=== PATIENT | female | born 1965 | race African-American/Black ===

== ENCOUNTER 2017-03-02 12:57 | Emergency (ER) | payer MEDICARE, MEDICAID ==
[~2017-03-02] VITALS: Ht 160 cm; Wt 69.0 kg
[~2017-03-02 12:57] MED LIST: ASPI-1159 PO; CALC667C4 PO; DOCU-150 PO; HYDR25TA PO; INSLAN SQ; LISI-653 PO; PRAV40TA58 PO; SITA100T11 PO
[2017-03-02] MEDS ORDERED: IBUPROFEN 600MG TABLET PO ONE (16:00)
[2017-03-02 16:09] VITALS: BP 175/92
== END 2017-03-02 17:55 | disposition home or self-care (01) ==
LOC: ER 12:57
DX: S40.012A Contusion of left shoulder, initial encounter (principal); S10.93XA Contusion of unspecified part of neck, initial encounter; I10 Essential (primary) hypertension; E11.9 Type 2 diabetes mellitus without complications; Z88.0 Allergy status to penicillin; Z79.4 Long term (current) use of insulin; Z79.82 Long term (current) use of aspirin; V89.2XXA Person injured in unspecified motor-vehicle accident, traffic, initial encounter; Y93.89 Activity, other specified; Y92.89 Other specified places as the place of occurrence of the external cause; Y99.8 Other external cause status
CPT/HCPCS: 72125; 73030; 99284

== ENCOUNTER 2017-05-05 21:20 | Inpatient (IN) | payer MEDICARE, MEDICAID ==
[~2017-05-05] VITALS: Ht 160 cm; Wt 72.6 kg
[2017-05-05 20:00] VITALS: BP 163/84
[2017-05-05 21:20] VITALS: BP 163/84
[2017-05-05 22:45] VITALS: BP 163/84
[2017-05-05] MEDS ORDERED: DEXTROSE 50% WATER 50ML SYRINGE IV PRN (22:45)
[2017-05-05] MEDS ORDERED: MORPHINE SULFATE 2 MG/ML CPJ (NOT FOR IM USE) IV PRN (22:45)
[2017-05-05] MEDS ORDERED: MAGNESIUM HYDROXIDE 400MG/5ML 30ML UDC PO PRN (23:00)
[2017-05-05] MEDS ORDERED: ACETAMINOPHEN 325MG TABLET PO PRN (23:00)
[2017-05-05] MEDS ORDERED: ACETAMINOPHEN 650MG SUPP PR PRN (23:00)
[2017-05-05] MEDS: ATORVASTATIN CALCIUM 10MG TABLET PO SCH (23:51)
[2017-05-05] MEDS: INSULIN DETEMIR UD 100 UNITS/ML SYR SUBCUT SCH (23:53)
[2017-05-06] MEDS ORDERED: FUROSEMIDE 40MG/4ML VIAL IVP SCH
[2017-05-06] MEDS ORDERED: FUROSEMIDE 40MG/4ML VIAL IVP PRN
[2017-05-06] MEDS: BLOOD SUGAR DIAGNOSTIC STRIP TEST SCH ×4 (06:30→21:00)
[2017-05-06] MEDS: INSULIN LISPRO 100 UNITS/ML SUBCUT SCH ×7 (07:01→22:46)
[2017-05-06 08:00] VITALS: BP 154/73
[2017-05-06] MEDS: VANCOMYCIN 1 G PREMIX 200 ML IV SCH (08:13)
[2017-05-06] MEDS: ZINC SULFATE 220 MG ( 50 ) CAPSULE PO SCH (08:14)
[2017-05-06] MEDS: ASCORBIC ACID 250 MG TABLET PO SCH ×2 (08:14→16:45)
[2017-05-06] MEDS: LISINOPRIL 40MG TABLET PO SCH (08:14)
[2017-05-06] MEDS: FOLIC ACID/VITAMIN B COMP W-C TABLET PO SCH (08:14)
[2017-05-06] MEDS: CALCIUM ACETATE 667MG CAPSULE PO SCH (08:14)
[2017-05-06] MEDS: DOCUSATE SODIUM 100MG CAPSULE PO SCH (08:14)
[2017-05-06] MEDS ORDERED: ASCORBIC ACID 500MG/5ML 120ML PO SCH (09:00)
[2017-05-06] MEDS ORDERED: ALBUMIN HUMAN 12.5GM/50ML (25%) IV SCH (09:00)
[2017-05-06] MEDS ORDERED: DEXT 5%/0.9% NACL 1,000 ML IV SCH (10:00)
[2017-05-06 20:00] VITALS: BP 146/70
[2017-05-06] MEDS: ATORVASTATIN CALCIUM 10MG TABLET PO SCH (22:24)
[2017-05-06] MEDS: INSULIN DETEMIR UD 100 UNITS/ML SYR SUBCUT SCH (22:47)
[2017-05-07] MEDS: BLOOD SUGAR DIAGNOSTIC STRIP TEST SCH ×4 (06:03→21:32)
[2017-05-07] MEDS: INSULIN LISPRO 100 UNITS/ML SUBCUT SCH ×8 (06:03→21:00)
[2017-05-07 08:00] VITALS: BP 177/84
[2017-05-07] MEDS: VANCOMYCIN 1 G PREMIX 200 ML IV SCH (08:25)
[2017-05-07] MEDS: ZINC SULFATE 220 MG ( 50 ) CAPSULE PO SCH (08:26)
[2017-05-07] MEDS: LISINOPRIL 40MG TABLET PO SCH (08:26)
[2017-05-07] MEDS: ASCORBIC ACID 250 MG TABLET PO SCH ×2 (08:26→16:35)
[2017-05-07] MEDS: CALCIUM ACETATE 667MG CAPSULE PO SCH (08:26)
[2017-05-07] MEDS: DOCUSATE SODIUM 100MG CAPSULE PO SCH (08:26)
[2017-05-07] MEDS: FOLIC ACID/VITAMIN B COMP W-C TABLET PO SCH (08:26)
[2017-05-07 20:00] VITALS: BP 157/78
[2017-05-07] MEDS: ATORVASTATIN CALCIUM 10MG TABLET PO SCH (21:32)
[2017-05-07] MEDS: INSULIN DETEMIR UD 100 UNITS/ML SYR SUBCUT SCH (21:32)
[2017-05-08] MEDS: BLOOD SUGAR DIAGNOSTIC STRIP TEST SCH ×4 (05:51→20:55)
[2017-05-08] MEDS: INSULIN LISPRO 100 UNITS/ML SUBCUT SCH ×7 (06:50→20:57)
[2017-05-08 07:34] LABS: BASOPHILS % 0.5 % (0.0-2.0); EOSINOPHILS % 1.2 % (0.0-5.0); HEMATOCRIT. 25.5 % (36.0-48.0); HEMOGLOBIN. 8.5 g/dL (12.0-16.0); LYMPHOCYTES % 22.2 % (20.0-50.0); MEAN CORPUSCULAR HEMOGLOBIN 29.1 pg (28.0-32.0); MEAN CORPUSCULAR VOLUME 87.5 fL (81.0-99.0); MEAN PLATELET VOLUME 7.4 fl (7.4-10.4); MONOCYTES % 9.7 % (2.0-8.0); NEUTROPHILS % 66.4 % (40.0-76.0); PLATELET 217 x1000/uL (130-400); RED BLOOD CELL COUNT 2.91 mill/uL (4.2-5.4); RED CELL DISTRIBUTION WIDTH 15.3 % (11.6-14.6)
[2017-05-08 07:40] LABS: CARBON DIOXIDE 28 mEq/L (21-32); CHLORIDE 106 mEq/L (98-107)
[2017-05-08 08:00] VITALS: BP 126/51
[2017-05-08] MEDS: DOCUSATE SODIUM 100MG CAPSULE PO SCH (08:41)
[2017-05-08] MEDS: FOLIC ACID/VITAMIN B COMP W-C TABLET PO SCH (08:41)
[2017-05-08] MEDS: CALCIUM ACETATE 667MG CAPSULE PO SCH (08:41)
[2017-05-08] MEDS: ASCORBIC ACID 250 MG TABLET PO SCH ×2 (08:41→16:31)
[2017-05-08] MEDS: ZINC SULFATE 220 MG ( 50 ) CAPSULE PO SCH (08:41)
[2017-05-08] MEDS: VANCOMYCIN 1 G PREMIX 200 ML IV SCH (08:45)
[2017-05-08] MEDS: LISINOPRIL 40MG TABLET PO SCH (08:46)
[2017-05-08 20:00] VITALS: BP 143/69
[2017-05-08] MEDS: ATORVASTATIN CALCIUM 10MG TABLET PO SCH (20:55)
[2017-05-08] MEDS: INSULIN DETEMIR UD 100 UNITS/ML SYR SUBCUT SCH (20:57)
[2017-05-09] MEDS: INSULIN LISPRO 100 UNITS/ML SUBCUT SCH ×7 (06:36→22:27)
[2017-05-09] MEDS: BLOOD SUGAR DIAGNOSTIC STRIP TEST SCH ×4 (06:36→21:00)
[2017-05-09 08:00] VITALS: BP 131/64
[2017-05-09] MEDS: FOLIC ACID/VITAMIN B COMP W-C TABLET PO SCH (09:01)
[2017-05-09] MEDS: LISINOPRIL 40MG TABLET PO SCH (09:01)
[2017-05-09] MEDS: DOCUSATE SODIUM 100MG CAPSULE PO SCH (09:01)
[2017-05-09] MEDS: ZINC SULFATE 220 MG ( 50 ) CAPSULE PO SCH (09:01)
[2017-05-09] MEDS: CALCIUM ACETATE 667MG CAPSULE PO SCH (09:01)
[2017-05-09] MEDS: ASCORBIC ACID 250 MG TABLET PO SCH ×2 (09:02→17:25)
[2017-05-09] MEDS: VANCOMYCIN 1 G PREMIX 200 ML IV SCH (09:21)
[2017-05-09 20:00] VITALS: BP 126/51
[2017-05-09] MEDS: ATORVASTATIN CALCIUM 10MG TABLET PO SCH (22:24)
[2017-05-09] MEDS: INSULIN DETEMIR UD 100 UNITS/ML SYR SUBCUT SCH (23:44)
[2017-05-10] MEDS: BLOOD SUGAR DIAGNOSTIC STRIP TEST SCH ×4 (06:07→20:40)
[2017-05-10] MEDS: VANCOMYCIN 1 G PREMIX 200 ML IV SCH (06:07)
[2017-05-10] MEDS: INSULIN LISPRO 100 UNITS/ML SUBCUT SCH ×8 (06:22→20:39)
[2017-05-10 08:00] VITALS: BP 141/67
[2017-05-10] MEDS: CALCIUM ACETATE 667MG CAPSULE PO SCH (09:38)
[2017-05-10] MEDS: DOCUSATE SODIUM 100MG CAPSULE PO SCH (09:39)
[2017-05-10] MEDS: ZINC SULFATE 220 MG ( 50 ) CAPSULE PO SCH (09:39)
[2017-05-10] MEDS: FOLIC ACID/VITAMIN B COMP W-C TABLET PO SCH (09:39)
[2017-05-10] MEDS: LISINOPRIL 40MG TABLET PO SCH (09:39)
[2017-05-10] MEDS: ASCORBIC ACID 250 MG TABLET PO SCH ×2 (09:39→17:56)
[2017-05-10 20:00] VITALS: BP 170/83
[2017-05-10] MEDS: ATORVASTATIN CALCIUM 10MG TABLET PO SCH (20:39)
[2017-05-10] MEDS: INSULIN DETEMIR UD 100 UNITS/ML SYR SUBCUT SCH (22:00)
[2017-05-11] VITALS: BP 115/49
[2017-05-11 06:36] LABS: BASOPHILS % 0.6 % (0.0-2.0); HEMATOCRIT. 24.7 % (36.0-48.0); HEMOGLOBIN. 8.3 g/dL (12.0-16.0); LYMPHOCYTES % 27.3 % (20.0-50.0); MEAN CORPUSCULAR HEMOGLOBIN 29.5 pg (28.0-32.0); MEAN CORPUSCULAR VOLUME 88.3 fL (81.0-99.0); MEAN PLATELET VOLUME 7.5 fl (7.4-10.4); MONOCYTES % 8.8 % (2.0-8.0); NEUTROPHILS % 61.3 % (40.0-76.0); PLATELET 191 x1000/uL (130-400); RED CELL DISTRIBUTION WIDTH 15.1 % (11.6-14.6)
[2017-05-11] MEDS: VANCOMYCIN 1 G PREMIX 200 ML IV SCH (06:58)
[2017-05-11] MEDS: BLOOD SUGAR DIAGNOSTIC STRIP TEST SCH ×4 (07:00→21:54)
[2017-05-11] MEDS: INSULIN LISPRO 100 UNITS/ML SUBCUT SCH ×7 (07:12→22:06)
[2017-05-11 08:00] VITALS: BP 134/60
[2017-05-11] MEDS: FOLIC ACID/VITAMIN B COMP W-C TABLET PO SCH (08:36)
[2017-05-11] MEDS: DOCUSATE SODIUM 100MG CAPSULE PO SCH (08:36)
[2017-05-11] MEDS: CALCIUM ACETATE 667MG CAPSULE PO SCH (08:36)
[2017-05-11] MEDS: ZINC SULFATE 220 MG ( 50 ) CAPSULE PO SCH (08:36)
[2017-05-11] MEDS: LISINOPRIL 40MG TABLET PO SCH (08:36)
[2017-05-11] MEDS: ASCORBIC ACID 250 MG TABLET PO SCH ×2 (08:36→16:44)
[2017-05-11 20:00] VITALS: BP 160/84
[2017-05-11] MEDS: ATORVASTATIN CALCIUM 10MG TABLET PO SCH (21:54)
[2017-05-11] MEDS: INSULIN DETEMIR UD 100 UNITS/ML SYR SUBCUT SCH (22:05)
[2017-05-12] MEDS: INSULIN LISPRO 100 UNITS/ML SUBCUT SCH ×7 (06:30→21:00)
[2017-05-12] MEDS: BLOOD SUGAR DIAGNOSTIC STRIP TEST SCH ×4 (06:30→21:09)
[2017-05-12] MEDS: VANCOMYCIN 1 G PREMIX 200 ML IV SCH (06:46)
[2017-05-12 08:00] VITALS: BP 165/71
[2017-05-12] MEDS: ASCORBIC ACID 250 MG TABLET PO SCH ×2 (08:39→16:48)
[2017-05-12] MEDS: ZINC SULFATE 220 MG ( 50 ) CAPSULE PO SCH (08:39)
[2017-05-12] MEDS: DOCUSATE SODIUM 100MG CAPSULE PO SCH (08:39)
[2017-05-12] MEDS: LISINOPRIL 40MG TABLET PO SCH (08:39)
[2017-05-12] MEDS: FOLIC ACID/VITAMIN B COMP W-C TABLET PO SCH (08:39)
[2017-05-12] MEDS: CALCIUM ACETATE 667MG CAPSULE PO SCH (08:39)
[2017-05-12 20:00] VITALS: BP 146/70
[2017-05-12] MEDS: ATORVASTATIN CALCIUM 10MG TABLET PO SCH (21:09)
[2017-05-12] MEDS: INSULIN DETEMIR UD 100 UNITS/ML SYR SUBCUT SCH (21:23)
[2017-05-13] MEDS: BLOOD SUGAR DIAGNOSTIC STRIP TEST SCH ×4 (06:20→20:48)
[2017-05-13] MEDS: INSULIN LISPRO 100 UNITS/ML SUBCUT SCH ×7 (06:58→21:04)
[2017-05-13 08:00] VITALS: BP 128/77
[2017-05-13] MEDS: DOCUSATE SODIUM 100MG CAPSULE PO SCH (08:53)
[2017-05-13] MEDS: CALCIUM ACETATE 667MG CAPSULE PO SCH (08:53)
[2017-05-13] MEDS: ASCORBIC ACID 250 MG TABLET PO SCH ×2 (08:54→16:19)
[2017-05-13] MEDS: ZINC SULFATE 220 MG ( 50 ) CAPSULE PO SCH (08:54)
[2017-05-13] MEDS: LISINOPRIL 40MG TABLET PO SCH (08:54)
[2017-05-13] MEDS: FOLIC ACID/VITAMIN B COMP W-C TABLET PO SCH (08:54)
[2017-05-13 20:00] VITALS: BP 174/87
[2017-05-13] MEDS: ATORVASTATIN CALCIUM 10MG TABLET PO SCH (20:48)
[2017-05-13] MEDS: INSULIN DETEMIR UD 100 UNITS/ML SYR SUBCUT SCH (21:04)
[2017-05-14 05:00] VITALS: BP 132/61
[2017-05-14] MEDS: BLOOD SUGAR DIAGNOSTIC STRIP TEST SCH ×4 (06:02→21:30)
[2017-05-14] MEDS: INSULIN LISPRO 100 UNITS/ML SUBCUT SCH ×7 (07:15→21:42)
[2017-05-14 08:08] VITALS: BP 130/70
[2017-05-14] MEDS: FOLIC ACID/VITAMIN B COMP W-C TABLET PO SCH (08:27)
[2017-05-14] MEDS: CALCIUM ACETATE 667MG CAPSULE PO SCH (08:27)
[2017-05-14] MEDS: ASCORBIC ACID 250 MG TABLET PO SCH ×2 (08:27→16:45)
[2017-05-14] MEDS: LISINOPRIL 40MG TABLET PO SCH (08:27)
[2017-05-14] MEDS: ZINC SULFATE 220 MG ( 50 ) CAPSULE PO SCH (08:27)
[2017-05-14] MEDS: DOCUSATE SODIUM 100MG CAPSULE PO SCH (08:27)
[2017-05-14 20:00] VITALS: BP 146/74
[2017-05-14] MEDS: ATORVASTATIN CALCIUM 10MG TABLET PO SCH (21:38)
[2017-05-14] MEDS: INSULIN DETEMIR UD 100 UNITS/ML SYR SUBCUT SCH (21:41)
[2017-05-15] MEDS: BLOOD SUGAR DIAGNOSTIC STRIP TEST SCH ×4 (06:13→21:00)
[2017-05-15] MEDS: INSULIN LISPRO 100 UNITS/ML SUBCUT SCH ×7 (06:14→22:42)
[2017-05-15 08:00] VITALS: BP 130/53
[2017-05-15] MEDS: FOLIC ACID/VITAMIN B COMP W-C TABLET PO SCH (09:58)
[2017-05-15] MEDS: ASCORBIC ACID 250 MG TABLET PO SCH ×2 (09:58→17:23)
[2017-05-15] MEDS: DOCUSATE SODIUM 100MG CAPSULE PO SCH (09:58)
[2017-05-15] MEDS: CALCIUM ACETATE 667MG CAPSULE PO SCH (09:58)
[2017-05-15] MEDS: ZINC SULFATE 220 MG ( 50 ) CAPSULE PO SCH (09:58)
[2017-05-15] MEDS: LISINOPRIL 40MG TABLET PO SCH (09:59)
[2017-05-15 20:00] VITALS: BP 175/82
[2017-05-15 20:34] VITALS: BP 116/58
[2017-05-15] MEDS: ATORVASTATIN CALCIUM 10MG TABLET PO SCH (22:31)
[2017-05-15] MEDS: INSULIN DETEMIR UD 100 UNITS/ML SYR SUBCUT SCH (22:41)
[2017-05-16] MEDS: BLOOD SUGAR DIAGNOSTIC STRIP TEST SCH ×2 (06:53→12:05)
[2017-05-16] MEDS: INSULIN LISPRO 100 UNITS/ML SUBCUT SCH ×4 (07:00→12:41)
[2017-05-16 08:40] VITALS: BP 154/70
[2017-05-16] MEDS: DOCUSATE SODIUM 100MG CAPSULE PO SCH (08:42)
[2017-05-16] MEDS: ZINC SULFATE 220 MG ( 50 ) CAPSULE PO SCH (08:42)
[2017-05-16] MEDS: ASCORBIC ACID 250 MG TABLET PO SCH (08:42)
[2017-05-16] MEDS: FOLIC ACID/VITAMIN B COMP W-C TABLET PO SCH (08:42)
[2017-05-16] MEDS: CALCIUM ACETATE 667MG CAPSULE PO SCH (08:42)
[2017-05-16] MEDS: LISINOPRIL 40MG TABLET PO SCH (08:43)
[2017-05-16] MEDS ORDERED: LOSARTAN POTASSIUM 100 MG TABLET PO ONE (12:15)
[2017-05-16] MEDS ORDERED: AMLODIPINE 5MG TABLET PO ONE (12:15)
[2017-05-16 12:30] VITALS: BP 154/70
[2017-05-16] MEDS ORDERED: LOSARTAN POTASSIUM 100 MG TABLET PO NR (12:30)
[2017-05-16] MEDS ORDERED: AMLODIPINE 5MG TABLET PO NR (12:30)
== END 2017-05-16 14:30 | disposition home health service (06) | DRG 301 ==
PROVIDERS: ADMIT Psychiatry & Neurology Neurology; ATTEND Internal Medicine
DX: E11.51 Type 2 diabetes mellitus with diabetic peripheral angiopathy without gangrene (principal); E11.22 Type 2 diabetes mellitus with diabetic chronic kidney disease; E11.42 Type 2 diabetes mellitus with diabetic polyneuropathy; E11.65 Type 2 diabetes mellitus with hyperglycemia; E78.5 Hyperlipidemia, unspecified; I12.9 Hypertensive chronic kidney disease with stage 1 through stage 4 chronic kidney disease, or unspecified chronic kidney disease; K21.9 Gastro-esophageal reflux disease without esophagitis; M06.9 Rheumatoid arthritis, unspecified; M16.0 Bilateral primary osteoarthritis of hip; R53.81 Other malaise; M17.12 Unilateral primary osteoarthritis, left knee; M79.7 Fibromyalgia; N18.9 Chronic kidney disease, unspecified; M19.072 Primary osteoarthritis, left ankle and foot; R26.9 Unspecified abnormalities of gait and mobility; D64.9 Anemia, unspecified; M19.90 Unspecified osteoarthritis, unspecified site; Z96.643 Presence of artificial hip joint, bilateral; G54.6 Phantom limb syndrome with pain; Z79.82 Long term (current) use of aspirin; Z79.899 Other long term (current) drug therapy; Z82.49 Family history of ischemic heart disease and other diseases of the circulatory system; Z83.3 Family history of diabetes mellitus; Z87.11 Personal history of peptic ulcer disease; Z89.519 Acquired absence of unspecified leg below knee; Z90.49 Acquired absence of other specified parts of digestive tract; Z79.84 Long term (current) use of oral hypoglycemic drugs; Z88.0 Allergy status to penicillin
CPT/HCPCS: 36415; 80048; 80202; 82962; 85025; 97110; 97116; 97162; 97166; 97530; 97535; 97542; J1815; J1940; J3370; J7042; J7050; J7060

== ENCOUNTER 2018-08-17 00:15 | Inpatient (IN) | payer MEDICARE, MEDICAID ==
[2018-08-17] VITALS (7 sets, daily range): BP systolic 157–176; BP diastolic 68–86
[~2018-08-17] VITALS: Ht 160 cm; Wt 63.5 kg
[~2018-08-17 00:15] MED LIST changes: +FERR325T6 PO; -INSLAN SQ; +LANTUSUD SUBCUT
[2018-08-17] MEDS ORDERED: ACETAMINOPHEN 325MG TABLET PO PRN (02:00)
[2018-08-17] MEDS ORDERED: DEXTROSE 50% WATER 50ML SYRINGE IV PRN (02:15)
[2018-08-17 03:44] LABS: BASOPHILS % 0.9 % (0.0-2.0); EOSINOPHILS % 1.7 % (0.0-5.0); HEMATOCRIT. 23.2 % (36.0-48.0); HEMOGLOBIN. 7.1 g/dL (12.0-16.0); LYMPHOCYTES % 13.4 % (20.0-50.0); MEAN CORPUSCULAR HEMOGLOBIN 27.9 pg (28.0-32.0); MEAN PLATELET VOLUME 9.1 fl (7.4-10.4); MONOCYTES % 5.9 % (2.0-8.0); NEUTROPHILS % 78.1 % (40.0-76.0); PLATELET 251 x1000/uL (130-400); RED BLOOD CELL COUNT 2.55 mill/uL (4.2-5.4); RED CELL DISTRIBUTION WIDTH 13.9 % (11.6-14.6)
[2018-08-17] MEDS: AMLODIPINE 10MG TABLET PO SCH (03:49)
[2018-08-17 03:53] LABS: CHLORIDE 115 mEq/L (98-107)
[2018-08-17 03:55] LABS: INR 1.1; PARTIAL THROMBOPLASTIN TIME 29.9 sec (23.4-31.0); PROTHROMBIN TIME 10.8 sec (9.1-11.1)
[2018-08-17 03:58] LABS: PHOSPHORUS 3.9 mg/dL (2.5-4.9)
[2018-08-17] MEDS: OMEPRAZOLE 20MG CAPSULE EXTENDED RELEASE PO SCH ×2 (06:20→16:00)
[2018-08-17] MEDS: BLOOD SUGAR DIAGNOSTIC STRIP TEST SCH ×3 (06:20→16:47)
[2018-08-17] MEDS: INSULIN LISPRO 100 UNITS/ML SUBCUT SCH ×4 (07:50→21:00)
[2018-08-17] MEDS: LOSARTAN POTASSIUM 50 MG TABLET PO SCH ×2 (08:23→22:24)
[2018-08-17] MEDS ORDERED: INFLUENZA VIRUS VACCINE(AFLURIA) 0.5ML SYR IM ONE (10:00)
[2018-08-17] MEDS ORDERED: PNEUMOCOCCAL 23-VAL P-SAC VAC 0.5 ML IM ONE (10:00)
[2018-08-17 12:59] LABS: TOTAL IRON BINDING CAPACITY 104 ug/dL (250-450)
[2018-08-17 13:00] LABS: LDL CHOLESTEROL 53 mg/dL (5-100)
[2018-08-17 13:01] LABS: HDL CHOLESTEROL 41 mg/dL (40-59); T4 FREE 1.24 ng/dL (0.76-1.46)
[2018-08-17] MEDS ORDERED: INSULIN GLARGINE UD 100 UNITS/ML SYR SUBCUT SCH ×4 (21:00→22:00)
[2018-08-17] MEDS: ATORVASTATIN CALCIUM 20MG TABLET PO SCH (22:25)
[2018-08-18] VITALS: BP 156/72
[2018-08-18 04:00] VITALS: BP 155/76
[2018-08-18] MEDS: OMEPRAZOLE 20MG CAPSULE EXTENDED RELEASE PO SCH ×2 (07:11→17:58)
[2018-08-18] MEDS: BLOOD SUGAR DIAGNOSTIC STRIP TEST SCH ×3 (07:36→18:15)
[2018-08-18] MEDS: INSULIN LISPRO 100 UNITS/ML SUBCUT SCH ×4 (07:50→21:00)
[2018-08-18 08:00] VITALS: BP 181/90
[2018-08-18] MEDS: LOSARTAN POTASSIUM 50 MG TABLET PO SCH (09:01)
[2018-08-18] MEDS: AMLODIPINE 10MG TABLET PO SCH (09:01)
[2018-08-18 12:00] VITALS: BP 181/90
[2018-08-18] MEDS ORDERED: CARVEDILOL 6.25 MG TABLET PO SCH ×2 (14:30→21:00)
[2018-08-18] MEDS ORDERED: HYDRALAZINE HCL 50MG TABLET PO SCH (14:30)
[2018-08-18 16:00] VITALS: BP 174/82
[2018-08-18 16:25] LABS: BASOPHILS % 0.4 % (0.0-2.0); HEMATOCRIT. 25.4 % (36.0-48.0); HEMOGLOBIN. 8.1 g/dL (12.0-16.0); LYMPHOCYTES % 11.6 % (20.0-50.0); MEAN CORPUSCULAR HEMOGLOBIN 28.7 pg (28.0-32.0); MEAN CORPUSCULAR VOLUME 90.2 fL (81.0-99.0); MEAN PLATELET VOLUME 9.1 fl (7.4-10.4); MONOCYTES % 5.1 % (2.0-8.0); NEUTROPHILS % 81.9 % (40.0-76.0); PLATELET 306 x1000/uL (130-400); RED BLOOD CELL COUNT 2.82 mill/uL (4.2-5.4); RED CELL DISTRIBUTION WIDTH 13.8 % (11.6-14.6)
[2018-08-18 16:27] LABS: CHLORIDE 113 mEq/L (98-107)
[2018-08-18 16:34] LABS: PHOSPHORUS 4.7 mg/dL (2.5-4.9)
[2018-08-18] MEDS ORDERED: SODIUM POLYSTYRENE SULFONATE 15 G/60 ML BOT PO SCH (17:19)
[2018-08-18] MEDS: CARVEDILOL 6.25 MG TABLET PO SCH (18:01)
[2018-08-18] MEDS: HYDRALAZINE HCL 50MG TABLET PO SCH (18:03)
[2018-08-18] MEDS: CITRIC ACID/SODIUM CITRATE SOLN 15ML UDC PO SCH (18:05)
[2018-08-18 20:00] VITALS: BP 158/78
[2018-08-18] MEDS: ATORVASTATIN CALCIUM 20MG TABLET PO SCH (21:06)
[2018-08-18] MEDS: INSULIN GLARGINE UD 100 UNITS/ML SYR SUBCUT SCH (21:48)
[2018-08-19] VITALS: BP 141/76
[2018-08-19 04:00] VITALS: BP 149/66
[2018-08-19] MEDS: OMEPRAZOLE 20MG CAPSULE EXTENDED RELEASE PO SCH ×2 (06:51→17:05)
[2018-08-19] MEDS: HYDRALAZINE HCL 50MG TABLET PO SCH ×3 (06:51→22:56)
[2018-08-19] MEDS: CARVEDILOL 6.25 MG TABLET PO SCH ×2 (06:52→17:10)
[2018-08-19] MEDS: INSULIN LISPRO 100 UNITS/ML SUBCUT SCH ×4 (07:50→21:00)
[2018-08-19 08:00] VITALS: BP 172/77
[2018-08-19] MEDS: BLOOD SUGAR DIAGNOSTIC STRIP TEST SCH ×3 (08:15→17:21)
[2018-08-19] MEDS ORDERED: MEROPENEM 1,000 MG in SODIUM CHLORIDE 0.9% 100 ML IV SCH (09:30)
[2018-08-19] MEDS ORDERED: VANCOMYCIN 1250MG in DEXTROSE 5% WATER 250ML IV NR (09:30)
[2018-08-19] MEDS: CITRIC ACID/SODIUM CITRATE SOLN 15ML UDC PO SCH ×3 (09:42→17:04)
[2018-08-19] MEDS: AMLODIPINE 10MG TABLET PO SCH (09:44)
[2018-08-19] MEDS ORDERED: VANCOMYCIN 1 G PREMIX 200 ML IV SCH (10:30)
[2018-08-19 12:00] VITALS: BP 116/89
[2018-08-19] MEDS: CEFEPIME 1,000 MG in DEXTROSE 5% WATER 50 ML IV SCH (12:28)
[2018-08-19 15:22] LABS: CLARITY URINE CLEAR (CLEAR); COLOR URINE YELLOW (YELLOW); KETONES URINE NEGATIVE (NEGATIVE); LEUKOCYTE ESTERASE URINE NEGATIVE (NEGATIVE); NITRITE URINE NEGATIVE (NEGATIVE); OCCULT BLOOD URINE NEGATIVE (NEGATIVE); PROTEIN URINE 2+ (NEGATIVE); SPECIFIC GRAVITY URINE 1.012 (1.005-1.030); UROBILINOGEN URINE 0.2 E.U./dL (0.2-1.0)
[2018-08-19 16:00] VITALS: BP 149/72
[2018-08-19 20:00] VITALS: BP 131/57
[2018-08-19] MEDS: ATORVASTATIN CALCIUM 20MG TABLET PO SCH (22:46)
[2018-08-19] MEDS: INSULIN GLARGINE UD 100 UNITS/ML SYR SUBCUT SCH (23:03)
[2018-08-20] VITALS (9 sets, daily range): BP systolic 137–157; BP diastolic 63–99
[2018-08-20] MEDS: CARVEDILOL 6.25 MG TABLET PO SCH ×2 (06:44→16:36)
[2018-08-20] MEDS: OMEPRAZOLE 20MG CAPSULE EXTENDED RELEASE PO SCH ×2 (06:44→16:36)
[2018-08-20] MEDS: HYDRALAZINE HCL 50MG TABLET PO SCH ×3 (06:44→21:29)
[2018-08-20] MEDS: BLOOD SUGAR DIAGNOSTIC STRIP TEST SCH ×3 (06:47→17:48)
[2018-08-20 06:53] LABS: BASOPHILS % 0.5 % (0.0-2.0); EOSINOPHILS % 1.3 % (0.0-5.0); LYMPHOCYTES % 13.8 % (20.0-50.0); MEAN CORPUSCULAR HEMOGLOBIN 29.4 pg (28.0-32.0); MEAN CORPUSCULAR VOLUME 90.7 fL (81.0-99.0); MEAN PLATELET VOLUME 9.1 fl (7.4-10.4); MONOCYTES % 6.6 % (2.0-8.0); NEUTROPHILS % 77.8 % (40.0-76.0); PLATELET 200 x1000/uL (130-400); RED BLOOD CELL COUNT 2.29 mill/uL (4.2-5.4); RED CELL DISTRIBUTION WIDTH 13.5 % (11.6-14.6)
[2018-08-20 07:41] LABS: HEMATOCRIT. 20.8 % (36.0-48.0); HEMOGLOBIN. 6.7 g/dL (12.0-16.0)
[2018-08-20] MEDS: INSULIN LISPRO 100 UNITS/ML SUBCUT SCH ×4 (07:50→21:38)
[2018-08-20] MEDS: CITRIC ACID/SODIUM CITRATE SOLN 15ML UDC PO SCH ×3 (08:44→17:53)
[2018-08-20] MEDS: AMLODIPINE 10MG TABLET PO SCH (08:45)
[2018-08-20] MEDS: CEFEPIME 1,000 MG in DEXTROSE 5% WATER 50 ML IV SCH (08:45)
[2018-08-20] MEDS ORDERED: VANCOMYCIN 1 G PREMIX 200 ML IV SCH (10:30)
[2018-08-20] MEDS ORDERED: VANCOMYCIN 1250MG in DEXTROSE 5% WATER 250ML IV NR (15:00)
[2018-08-20 19:27] LABS: HEMATOCRIT 24.4 % (36.0-48.0); HEMOGLOBIN 7.7 g/dL (12.0-16.0)
[2018-08-20] MEDS: ATORVASTATIN CALCIUM 20MG TABLET PO SCH (21:29)
[2018-08-20] MEDS: INSULIN GLARGINE UD 100 UNITS/ML SYR SUBCUT SCH (22:21)
[2018-08-21] VITALS: BP 168/81
[2018-08-21 03:01] LABS: INR 1.1; PROTHROMBIN TIME 10.9 sec (9.1-11.1)
[2018-08-21 03:02] LABS: HEMATOCRIT 22.8 % (36.0-48.0); HEMOGLOBIN 7.4 g/dL (12.0-16.0)
[2018-08-21 04:00] VITALS: BP 149/67
[2018-08-21] MEDS: CARVEDILOL 6.25 MG TABLET PO SCH ×3 (06:08→21:34)
[2018-08-21] MEDS: HYDRALAZINE HCL 50MG TABLET PO SCH ×3 (06:09→21:34)
[2018-08-21] MEDS: OMEPRAZOLE 20MG CAPSULE EXTENDED RELEASE PO SCH ×2 (06:32→17:13)
[2018-08-21] MEDS: BLOOD SUGAR DIAGNOSTIC STRIP TEST SCH ×3 (06:34→17:14)
[2018-08-21] MEDS: INSULIN LISPRO 100 UNITS/ML SUBCUT SCH ×4 (07:30→21:00)
[2018-08-21 08:00] VITALS: BP 157/71
[2018-08-21] MEDS: CITRIC ACID/SODIUM CITRATE SOLN 15ML UDC PO SCH ×3 (08:50→17:13)
[2018-08-21] MEDS: AMLODIPINE 10MG TABLET PO SCH (09:03)
[2018-08-21] MEDS: CEFEPIME 500 MG in DEXTROSE 5% WATER 50 ML IV SCH (09:04)
[2018-08-21] MEDS: TOBRAMYCIN/DEXAMETH 0.1/0.3% OPHTH SUSP 2.5ML BOTHEYE SCH ×3 (14:30→21:32)
[2018-08-21 16:00] VITALS: BP 153/70
[2018-08-21] MEDS ORDERED: HYDRALAZINE HCL 50MG TABLET PO NR (16:45)
[2018-08-21] MEDS ORDERED: MAGNESIUM CITRATE 300ML SOLUTION PO PRN (17:00)
[2018-08-21 20:00] VITALS: BP_SYST 137; BP_SYST 147; BP_DIAS 63; BP_DIAS 95
[2018-08-21] MEDS: EPOETIN ALFA 4000UNITS/ML VIAL SUBCUT SCH (21:00)
[2018-08-21] MEDS ORDERED: SENNOSIDES 8.6MG TABLET PO PRN (21:00)
[2018-08-21] MEDS: ATORVASTATIN CALCIUM 20MG TABLET PO SCH (21:33)
[2018-08-21] MEDS: METRONIDAZOLE 500MG TABLET PO SCH (21:33)
[2018-08-21] MEDS: INSULIN GLARGINE UD 100 UNITS/ML SYR SUBCUT SCH (21:46)
[2018-08-22] VITALS: BP 146/65
[2018-08-22 04:00] VITALS: BP 138/59
[2018-08-22] MEDS: BLOOD SUGAR DIAGNOSTIC STRIP TEST SCH ×4 (06:29→21:31)
[2018-08-22] MEDS: INSULIN LISPRO 100 UNITS/ML SUBCUT SCH ×4 (06:42→21:00)
[2018-08-22] MEDS: HYDRALAZINE HCL 50MG TABLET PO SCH ×3 (06:42→21:32)
[2018-08-22 06:48] LABS: BASOPHILS % 0.7 % (0.0-2.0); EOSINOPHILS % 2.1 % (0.0-5.0); HEMATOCRIT. 23.1 % (36.0-48.0); HEMOGLOBIN. 7.4 g/dL (12.0-16.0); LYMPHOCYTES % 16.8 % (20.0-50.0); MEAN CORPUSCULAR HEMOGLOBIN 29.2 pg (28.0-32.0); MEAN CORPUSCULAR VOLUME 90.7 fL (81.0-99.0); MEAN PLATELET VOLUME 9.1 fl (7.4-10.4); MONOCYTES % 8.6 % (2.0-8.0); NEUTROPHILS % 71.8 % (40.0-76.0); PLATELET 172 x1000/uL (130-400); RED BLOOD CELL COUNT 2.55 mill/uL (4.2-5.4)
[2018-08-22 07:27] LABS: CHLORIDE 109 mEq/L (98-107)
[2018-08-22 07:57] LABS: PHOSPHORUS 5.3 mg/dL (2.5-4.9)
[2018-08-22 07:58] LABS: LDL CHOLESTEROL 48 mg/dL (5-100)
[2018-08-22 07:59] LABS: HDL CHOLESTEROL 41 mg/dL (40-59)
[2018-08-22 08:00] VITALS: BP 141/65
[2018-08-22] MEDS: CITRIC ACID/SODIUM CITRATE SOLN 15ML UDC PO SCH ×3 (09:34→17:28)
[2018-08-22] MEDS: FAMOTIDINE 20MG TABLET PO SCH (09:34)
[2018-08-22] MEDS: METRONIDAZOLE 500MG TABLET PO SCH ×2 (09:34→21:05)
[2018-08-22] MEDS: TOBRAMYCIN/DEXAMETH 0.1/0.3% OPHTH SUSP 2.5ML BOTHEYE SCH ×4 (09:34→21:05)
[2018-08-22] MEDS: CEFEPIME 500 MG in DEXTROSE 5% WATER 50 ML IV SCH (09:35)
[2018-08-22] MEDS: AMLODIPINE 10MG TABLET PO SCH (09:35)
[2018-08-22 12:00] VITALS: BP 126/59
[2018-08-22] MEDS ORDERED: VANCOMYCIN 750 MG PREMIX 150 ML IV NR (15:30)
[2018-08-22] MEDS: CARVEDILOL 6.25 MG TABLET PO SCH (17:28)
[2018-08-22 20:00] VITALS: BP 134/67
[2018-08-22] MEDS: ATORVASTATIN CALCIUM 20MG TABLET PO SCH (21:06)
[2018-08-22] MEDS: INSULIN GLARGINE UD 100 UNITS/ML SYR SUBCUT SCH (21:36)
[2018-08-23] VITALS: BP 146/72
[2018-08-23 04:00] VITALS: BP 141/62
[2018-08-23] MEDS: HYDRALAZINE HCL 50MG TABLET PO SCH ×3 (05:56→22:08)
[2018-08-23] MEDS: BLOOD SUGAR DIAGNOSTIC STRIP TEST SCH ×4 (05:56→20:31)
[2018-08-23] MEDS: CARVEDILOL 6.25 MG TABLET PO SCH ×2 (05:56→17:20)
[2018-08-23 07:06] LABS: BASOPHILS % 0.5 % (0.0-2.0); EOSINOPHILS % 1.7 % (0.0-5.0); HEMATOCRIT. 22.9 % (36.0-48.0); HEMOGLOBIN. 7.4 g/dL (12.0-16.0); LYMPHOCYTES % 17.7 % (20.0-50.0); MEAN CORPUSCULAR HEMOGLOBIN 29.3 pg (28.0-32.0); MEAN CORPUSCULAR VOLUME 90.4 fL (81.0-99.0); MEAN PLATELET VOLUME 9.7 fl (7.4-10.4); MONOCYTES % 9.1 % (2.0-8.0); PLATELET 179 x1000/uL (130-400); RED BLOOD CELL COUNT 2.53 mill/uL (4.2-5.4); RED CELL DISTRIBUTION WIDTH 13.9 % (11.6-14.6)
[2018-08-23] MEDS: INSULIN LISPRO 100 UNITS/ML SUBCUT SCH ×4 (07:50→22:23)
[2018-08-23 08:00] VITALS: BP 119/58
[2018-08-23] MEDS: FAMOTIDINE 20MG TABLET PO SCH (08:54)
[2018-08-23] MEDS: AMLODIPINE 10MG TABLET PO SCH (08:54)
[2018-08-23] MEDS: METRONIDAZOLE 500MG TABLET PO SCH ×2 (08:54→21:59)
[2018-08-23] MEDS: CEFEPIME 500 MG in DEXTROSE 5% WATER 50 ML IV SCH (08:55)
[2018-08-23] MEDS: TOBRAMYCIN/DEXAMETH 0.1/0.3% OPHTH SUSP 2.5ML BOTHEYE SCH ×4 (08:55→22:08)
[2018-08-23] MEDS: CITRIC ACID/SODIUM CITRATE SOLN 15ML UDC PO SCH ×3 (08:56→17:19)
[2018-08-23] MEDS ORDERED: AMLODIPINE 5MG TABLET PO SCH (09:00)
[2018-08-23 12:00] VITALS: BP 137/67
[2018-08-23] MEDS: SILVER SULFADIAZINE 1% CREAM 50GM TOP SCH (15:49)
[2018-08-23 16:00] VITALS: BP 126/56
[2018-08-23 20:00] VITALS: BP 127/62
[2018-08-23] MEDS: ATORVASTATIN CALCIUM 20MG TABLET PO SCH (21:59)
[2018-08-23] MEDS: EPOETIN ALFA 4000UNITS/ML VIAL SUBCUT SCH (22:00)
[2018-08-23] MEDS: INSULIN GLARGINE UD 100 UNITS/ML SYR SUBCUT SCH (22:22)
[2018-08-24] VITALS: BP 126/63
[2018-08-24 04:00] VITALS: BP 132/71
[2018-08-24] MEDS: BLOOD SUGAR DIAGNOSTIC STRIP TEST SCH ×3 (06:49→17:20)
[2018-08-24] MEDS: CARVEDILOL 6.25 MG TABLET PO SCH ×2 (07:01→18:00)
[2018-08-24] MEDS: INSULIN LISPRO 100 UNITS/ML SUBCUT SCH ×3 (07:04→17:23)
[2018-08-24] MEDS: HYDRALAZINE HCL 50MG TABLET PO SCH ×2 (07:09→13:36)
[2018-08-24 08:00] VITALS: BP 124/51
[2018-08-24] MEDS: AMLODIPINE 10MG TABLET PO SCH (08:24)
[2018-08-24] MEDS: FAMOTIDINE 20MG TABLET PO SCH (08:24)
[2018-08-24] MEDS: METRONIDAZOLE 500MG TABLET PO SCH (08:24)
[2018-08-24] MEDS: CITRIC ACID/SODIUM CITRATE SOLN 15ML UDC PO SCH ×3 (08:24→17:00)
[2018-08-24] MEDS: TOBRAMYCIN/DEXAMETH 0.1/0.3% OPHTH SUSP 2.5ML BOTHEYE SCH ×3 (08:25→17:00)
[2018-08-24] MEDS: SILVER SULFADIAZINE 1% CREAM 50GM TOP SCH (08:25)
[2018-08-24] MEDS: CEFEPIME 500 MG in DEXTROSE 5% WATER 50 ML IV SCH (08:25)
[2018-08-24] MEDS ORDERED: LIDOCAINE HCL 1% 20ML VIAL (Pyxis) INJ ONE (09:00)
[2018-08-24] MEDS ORDERED: SODIUM BICARBONATE 4% (2.4MEQ) 5ML VIAL IV ONE (09:00)
[2018-08-24 12:00] VITALS: BP 131/58
[2018-08-24 16:00] VITALS: BP 131/60
[2018-08-24 16:55] VITALS: BP 132/62
== END 2018-08-24 19:50 | disposition home health service (06) | DRG 500 ==
LOC: 6EST 00:15
PROVIDERS: ADMIT Internal Medicine; ATTEND Internal Medicine
PROC: 30233N1 Transfusion of Nonautologous Red Blood Cells into Peripheral Vein, Percutaneous Approach (ICD-10-PCS; 2018-08-20)
PROC: 0J9R0ZZ Drainage of Left Foot Subcutaneous Tissue and Fascia, Open Approach (ICD-10-PCS; principal; 2018-08-21)
PROC: 02HV33Z Insertion of Infusion Device into Superior Vena Cava, Percutaneous Approach (ICD-10-PCS; 2018-08-24)
PROC: B518ZZA Fluoroscopy of Superior Vena Cava, Guidance (ICD-10-PCS; 2018-08-24)
PROC: B548ZZA Ultrasonography of Superior Vena Cava, Guidance (ICD-10-PCS; 2018-08-24)
DX: T87.44 Infection of amputation stump, left lower extremity (principal); E43 Unspecified severe protein-calorie malnutrition; N18.6 End stage renal disease; L02.612 Cutaneous abscess of left foot; E87.2 Acidosis; M86.8X7 Other osteomyelitis, ankle and foot; N25.81 Secondary hyperparathyroidism of renal origin; N17.9 Acute kidney failure, unspecified; E11.69 Type 2 diabetes mellitus with other specified complication; I87.8 Other specified disorders of veins; E11.51 Type 2 diabetes mellitus with diabetic peripheral angiopathy without gangrene; D50.0 Iron deficiency anemia secondary to blood loss (chronic); E11.42 Type 2 diabetes mellitus with diabetic polyneuropathy; E87.5 Hyperkalemia; D72.829 Elevated white blood cell count, unspecified; L97.529 Non-pressure chronic ulcer of other part of left foot with unspecified severity; E11.22 Type 2 diabetes mellitus with diabetic chronic kidney disease; E78.5 Hyperlipidemia, unspecified; E83.51 Hypocalcemia; E11.621 Type 2 diabetes mellitus with foot ulcer; M85.80 Other specified disorders of bone density and structure, unspecified site; E11.319 Type 2 diabetes mellitus with unspecified diabetic retinopathy without macular edema; I12.9 Hypertensive chronic kidney disease with stage 1 through stage 4 chronic kidney disease, or unspecified chronic kidney disease; Y83.5 Amputation of limb(s) as the cause of abnormal reaction of the patient, or of later complication, without mention of misadventure at the time of the procedure; D63.1 Anemia in chronic kidney disease; Z99.3 Dependence on wheelchair; Z89.431 Acquired absence of right foot; Z91.19 Patient's noncompliance with other medical treatment and regimen; Z88.0 Allergy status to penicillin; Z79.82 Long term (current) use of aspirin; Z83.3 Family history of diabetes mellitus; Z79.899 Other long term (current) drug therapy; Z79.4 Long term (current) use of insulin; Z68.24 Body mass index [BMI] 24.0-24.9, adult; Z89.432 Acquired absence of left foot; Y93.89 Activity, other specified; Y92.89 Other specified places as the place of occurrence of the external cause; Y99.8 Other external cause status
CPT/HCPCS: 36415; 36569; 71045; 73610; 73630; 73721; 76937; 77001; 80048; 80061; 80069; 80076; 80202; 82330; 82728; 82962; 83540; 83550; 83735; 83970; 84100; 84439; 84443; 84481; 84550; 85014; 85018; 85049; 85384; 85651; 86850; 86900; 86920; 87070; 87077; 87186; 90686; 90732; 93005; 93922; 93970; C1725; J0692; J0885; J1815; J2185; J3370; J3490; J7040; J7050; J7060; P9021

== ENCOUNTER 2018-09-20 16:32 | Inpatient (IN) | payer MEDICARE, MEDICAID ==
[~2018-09-20] VITALS: Ht 160 cm; Wt 82.6 kg
[2018-09-20 19:04] LABS: BASOPHILS % 0.9 % (0.0-2.0); EOSINOPHILS % 1.9 % (0.0-5.0); HEMATOCRIT. 25.2 % (36.0-48.0); HEMOGLOBIN. 8.1 g/dL (12.0-16.0); MEAN CORPUSCULAR HEMOGLOBIN 28.8 pg (28.0-32.0); MEAN CORPUSCULAR VOLUME 90.1 fL (81.0-99.0); MEAN PLATELET VOLUME 8.8 fl (7.4-10.4); MONOCYTES % 5.2 % (2.0-8.0); PLATELET 214 x1000/uL (130-400); RED CELL DISTRIBUTION WIDTH 14.3 % (11.6-14.6)
[2018-09-20 19:06] LABS: CHLORIDE 110 mEq/L (98-107)
[2018-09-20] MEDS ORDERED: HYDRALAZINE 20MG/ML VIAL IV ONE ×2 (20:00→23:00)
[2018-09-20 23:30] VITALS: BP 167/76
[2018-09-21] MEDS ORDERED: LEVVL SQ (00:32)
[2018-09-21] MEDS: HYDRALAZINE HCL 50MG TABLET PO SCH ×5 (01:14→21:53)
[2018-09-21] MEDS: ISOSORBIDE DINITRATE 20MG TABLET PO SCH ×5 (01:21→18:14)
[2018-09-21] MEDS ORDERED: NON FORMULARY PATIENT HOME MED XX SCH (01:45)
[2018-09-21] MEDS ORDERED: ONDANSETRON HCL 4MG/2ML INJ IV PRN (02:00)
[2018-09-21] MEDS ORDERED: DEXTROSE 50% WATER 50ML SYRINGE IV PRN (02:00)
[2018-09-21] MEDS ORDERED: ACETAMINOPHEN 325MG TABLET PO PRN (02:00)
[2018-09-21 04:00] VITALS: BP 145/64
[2018-09-21] MEDS: BLOOD SUGAR DIAGNOSTIC STRIP TEST SCH ×4 (06:13→20:42)
[2018-09-21 06:28] LABS: EOSINOPHILS % 2.1 % (0.0-5.0); HEMATOCRIT. 21.5 % (36.0-48.0); HEMOGLOBIN. 7.1 g/dL (12.0-16.0); LYMPHOCYTES % 12.6 % (20.0-50.0); MEAN CORPUSCULAR HEMOGLOBIN 29.5 pg (28.0-32.0); MEAN CORPUSCULAR VOLUME 89.9 fL (81.0-99.0); MEAN PLATELET VOLUME 9.2 fl (7.4-10.4); MONOCYTES % 6.2 % (2.0-8.0); NEUTROPHILS % 78.1 % (40.0-76.0); PLATELET 175 x1000/uL (130-400); RED BLOOD CELL COUNT 2.39 mill/uL (4.2-5.4); RED CELL DISTRIBUTION WIDTH 14.3 % (11.6-14.6)
[2018-09-21 06:57] LABS: INR 1.1; PARTIAL THROMBOPLASTIN TIME 29.3 sec (23.4-31.0); PROTHROMBIN TIME 11.7 sec (9.6-11.0)
[2018-09-21] MEDS ORDERED: LIDOCAINE HCL 1% 20ML VIAL (Pyxis) INJ ONE (07:33)
[2018-09-21] MEDS ORDERED: SODIUM BICARBONATE 4% (2.4MEQ) 5ML VIAL IV ONE (07:33)
[2018-09-21 08:00] VITALS: BP 141/87
[2018-09-21] MEDS: INSULIN LISPRO 100 UNITS/ML SUBCUT SCH ×4 (08:10→20:42)
[2018-09-21] MEDS ORDERED: INSULIN DETEMIR 10 UNIT SQ SCH (09:00)
[2018-09-21] MEDS: AMLODIPINE 10MG TABLET PO SCH ×2 (09:00→18:15)
[2018-09-21] MEDS: CARVEDILOL 12.5MG TABLET PO SCH ×2 (09:00→18:15)
[2018-09-21 09:38] LABS: CHLORIDE 112 mEq/L (98-107)
[2018-09-21 09:55] LABS: LDL CHOLESTEROL 69 mg/dL (5-100)
[2018-09-21 09:57] LABS: HDL CHOLESTEROL 39 mg/dL (40-59); TOTAL IRON BINDING CAPACITY 97 ug/dL (250-450)
[2018-09-21] MEDS: ASPIRIN 81MG TABLET PO SCH (09:58)
[2018-09-21] MEDS: INSULIN GLARGINE UD 100 UNITS/ML SYR SUBCUT SCH (10:01)
[2018-09-21 12:00] VITALS: BP 154/85
[2018-09-21 16:00] VITALS: BP 126/70
[2018-09-21] MEDS: DOCUSATE SODIUM 100MG CAPSULE PO SCH (16:29)
[2018-09-21] MEDS ORDERED: HEPARIN SODIUM 1,000 UNIT/1ML VIAL IV NR (16:30)
[2018-09-21] MEDS ORDERED: MEDICATION NOT ON FORMULARY EA (Docusate Sodium 100 MG) PO SCH (18:00)
[2018-09-21] MEDS: CEFEPIME 2,000 MG in DEXT 5% WATER 100 ML IV SCH (18:11)
[2018-09-21 20:00] VITALS: BP 112/49
[2018-09-21] MEDS ORDERED: MEDICATION NOT ON FORMULARY EA (Pravastatin Sodium 40 MG) PO SCH (21:00)
[2018-09-21 21:38] LABS: HEMATOCRIT 25.1 % (36.0-48.0); HEMOGLOBIN 8.1 g/dL (12.0-16.0)
[2018-09-21] MEDS: ATORVASTATIN CALCIUM 10MG TABLET PO SCH (21:53)
[2018-09-21] MEDS: METRONIDAZOLE 250MG TABLET PO SCH (21:53)
[2018-09-22] VITALS: BP 115/50
[2018-09-22 04:00] VITALS: BP 150/70
[2018-09-22] MEDS: METRONIDAZOLE 250MG TABLET PO SCH ×3 (05:25→21:13)
[2018-09-22] MEDS: HYDRALAZINE HCL 50MG TABLET PO SCH ×3 (06:00→21:13)
[2018-09-22] MEDS ORDERED: MANNITOL 12.5G (25%) VIAL 50ML IV NR (06:00)
[2018-09-22 06:57] LABS: BASOPHILS % 0.7 % (0.0-2.0); EOSINOPHILS % 2.6 % (0.0-5.0); HEMATOCRIT. 23.5 % (36.0-48.0); HEMOGLOBIN. 7.6 g/dL (12.0-16.0); LYMPHOCYTES % 14.9 % (20.0-50.0); MEAN CORPUSCULAR HEMOGLOBIN 29.4 pg (28.0-32.0); MEAN PLATELET VOLUME 9.5 fl (7.4-10.4); MONOCYTES % 9.4 % (2.0-8.0); NEUTROPHILS % 72.4 % (40.0-76.0); PLATELET 157 x1000/uL (130-400); RED BLOOD CELL COUNT 2.58 mill/uL (4.2-5.4); RED CELL DISTRIBUTION WIDTH 14.3 % (11.6-14.6)
[2018-09-22] MEDS: BLOOD SUGAR DIAGNOSTIC STRIP TEST SCH ×4 (07:40→20:36)
[2018-09-22 08:00] VITALS: BP 147/92
[2018-09-22] MEDS: INSULIN LISPRO 100 UNITS/ML SUBCUT SCH ×4 (08:10→20:37)
[2018-09-22 08:17] LABS: PHOSPHORUS 4.5 mg/dL (2.5-4.9)
[2018-09-22] MEDS: CARVEDILOL 12.5MG TABLET PO SCH ×2 (08:56→20:36)
[2018-09-22] MEDS: ASPIRIN 81MG TABLET PO SCH (08:56)
[2018-09-22] MEDS: AMLODIPINE 10MG TABLET PO SCH (08:57)
[2018-09-22] MEDS: ISOSORBIDE DINITRATE 20MG TABLET PO SCH ×3 (08:57→17:58)
[2018-09-22] MEDS: INSULIN GLARGINE UD 100 UNITS/ML SYR SUBCUT SCH (10:00)
[2018-09-22 11:43] LABS: HEPATITIS B SURFACE ANTIGEN NEGATIVE
[2018-09-22 12:00] VITALS: BP 136/78
[2018-09-22 17:00] VITALS: BP 138/81
[2018-09-22] MEDS: CEFEPIME 2,000 MG in DEXT 5% WATER 100 ML IV SCH (18:13)
[2018-09-22] MEDS: DOCUSATE SODIUM 100MG CAPSULE PO SCH (18:26)
[2018-09-22 20:00] VITALS: BP 133/60
[2018-09-22] MEDS: ALBUMIN HUMAN 12.5GM/50ML (25%) IV SCH (20:36)
[2018-09-22] MEDS: ATORVASTATIN CALCIUM 10MG TABLET PO SCH (20:36)
[2018-09-22] MEDS ORDERED: EPOETIN ALFA 10000UNITS/ML VIAL SUBCUT NR (21:00)
[2018-09-23] VITALS: BP 120/54
[2018-09-23 04:00] VITALS: BP 127/58
[2018-09-23] MEDS: HYDRALAZINE HCL 50MG TABLET PO SCH ×3 (05:36→21:15)
[2018-09-23] MEDS: METRONIDAZOLE 250MG TABLET PO SCH ×3 (05:36→21:14)
[2018-09-23 07:08] LABS: BASOPHILS % 0.4 % (0.0-2.0); EOSINOPHILS % 2.7 % (0.0-5.0); HEMATOCRIT. 21.9 % (36.0-48.0); HEMOGLOBIN. 7.1 g/dL (12.0-16.0); LYMPHOCYTES % 13.9 % (20.0-50.0); MEAN CORPUSCULAR HEMOGLOBIN 29.7 pg (28.0-32.0); MEAN CORPUSCULAR VOLUME 90.8 fL (81.0-99.0); MEAN PLATELET VOLUME 9.6 fl (7.4-10.4); MONOCYTES % 11.6 % (2.0-8.0); NEUTROPHILS % 71.4 % (40.0-76.0); PLATELET 134 x1000/uL (130-400); RED BLOOD CELL COUNT 2.41 mill/uL (4.2-5.4); RED CELL DISTRIBUTION WIDTH 13.8 % (11.6-14.6)
[2018-09-23] MEDS: BLOOD SUGAR DIAGNOSTIC STRIP TEST SCH ×4 (07:26→21:15)
[2018-09-23] MEDS: INSULIN LISPRO 100 UNITS/ML SUBCUT SCH ×4 (07:26→21:00)
[2018-09-23 08:00] VITALS: BP 141/68
[2018-09-23] MEDS: ASPIRIN 81MG TABLET PO SCH (09:03)
[2018-09-23] MEDS: AMLODIPINE 10MG TABLET PO SCH (09:04)
[2018-09-23] MEDS: CARVEDILOL 12.5MG TABLET PO SCH ×2 (09:04→21:15)
[2018-09-23] MEDS: ISOSORBIDE DINITRATE 20MG TABLET PO SCH ×3 (09:07→16:56)
[2018-09-23] MEDS: ALBUMIN HUMAN 12.5GM/50ML (25%) IV SCH ×2 (09:10→16:55)
[2018-09-23] MEDS: INSULIN GLARGINE UD 100 UNITS/ML SYR SUBCUT SCH (09:47)
[2018-09-23 12:00] VITALS: BP 135/57
[2018-09-23 16:00] VITALS: BP 119/52
[2018-09-23] MEDS: DOCUSATE SODIUM 100MG CAPSULE PO SCH (18:00)
[2018-09-23] MEDS: CEFEPIME 2,000 MG in DEXT 5% WATER 100 ML IV SCH (18:47)
[2018-09-23 20:00] VITALS: BP 131/62
[2018-09-23] MEDS: ATORVASTATIN CALCIUM 10MG TABLET PO SCH (21:15)
[2018-09-24] VITALS: BP 115/51
[2018-09-24] MEDS ORDERED: MAGNESIUM CITRATE 300ML SOLUTION PO NR
[2018-09-24 04:00] VITALS: BP 146/61
[2018-09-24] MEDS: METRONIDAZOLE 250MG TABLET PO SCH ×3 (05:36→21:29)
[2018-09-24] MEDS: HYDRALAZINE HCL 50MG TABLET PO SCH ×3 (05:36→21:30)
[2018-09-24] MEDS: BLOOD SUGAR DIAGNOSTIC STRIP TEST SCH ×4 (05:37→21:30)
[2018-09-24 07:17] LABS: BASOPHILS % 0.7 % (0.0-2.0); EOSINOPHILS % 2.4 % (0.0-5.0); HEMATOCRIT. 22.1 % (36.0-48.0); HEMOGLOBIN. 7.3 g/dL (12.0-16.0); LYMPHOCYTES % 10.8 % (20.0-50.0); MEAN CORPUSCULAR HEMOGLOBIN 29.8 pg (28.0-32.0); MEAN CORPUSCULAR VOLUME 90.3 fL (81.0-99.0); MEAN PLATELET VOLUME 10.1 fl (7.4-10.4); MONOCYTES % 9.9 % (2.0-8.0); NEUTROPHILS % 76.2 % (40.0-76.0); PLATELET 134 x1000/uL (130-400); RED BLOOD CELL COUNT 2.44 mill/uL (4.2-5.4); RED CELL DISTRIBUTION WIDTH 14.1 % (11.6-14.6)
[2018-09-24 08:00] VITALS: BP 128/59
[2018-09-24] MEDS: INSULIN LISPRO 100 UNITS/ML SUBCUT SCH ×4 (08:10→21:00)
[2018-09-24] MEDS: ASPIRIN 81MG TABLET PO SCH (09:09)
[2018-09-24] MEDS: AMLODIPINE 10MG TABLET PO SCH (09:09)
[2018-09-24] MEDS: CARVEDILOL 12.5MG TABLET PO SCH ×2 (09:09→21:00)
[2018-09-24] MEDS: INSULIN GLARGINE UD 100 UNITS/ML SYR SUBCUT SCH (09:24)
[2018-09-24] MEDS: ISOSORBIDE DINITRATE 20MG TABLET PO SCH ×3 (09:59→18:43)
[2018-09-24] MEDS: ALBUMIN HUMAN 12.5GM/50ML (25%) IV SCH ×2 (11:31→21:29)
[2018-09-24 12:00] VITALS: BP 123/58
[2018-09-24 16:00] VITALS: BP 128/60
[2018-09-24] MEDS: DOCUSATE SODIUM 100MG CAPSULE PO SCH (18:42)
[2018-09-24] MEDS: CEFEPIME 2,000 MG in DEXT 5% WATER 100 ML IV SCH (18:45)
[2018-09-24 20:00] VITALS: BP 124/60
[2018-09-24] MEDS: ATORVASTATIN CALCIUM 10MG TABLET PO SCH (21:29)
[2018-09-24] MEDS: EPOETIN ALFA 4000UNITS/ML VIAL SUBCUT SCH (21:33)
[2018-09-25] VITALS: BP 118/71
[2018-09-25 04:00] VITALS: BP 145/59
[2018-09-25] MEDS: METRONIDAZOLE 250MG TABLET PO SCH ×3 (06:02→21:36)
[2018-09-25] MEDS: BLOOD SUGAR DIAGNOSTIC STRIP TEST SCH ×4 (06:03→21:36)
[2018-09-25] MEDS: HYDRALAZINE HCL 50MG TABLET PO SCH ×3 (06:03→21:36)
[2018-09-25 08:00] VITALS: BP 115/67
[2018-09-25] MEDS: ASPIRIN 81MG TABLET PO SCH (08:37)
[2018-09-25] MEDS: AMLODIPINE 10MG TABLET PO SCH (08:37)
[2018-09-25] MEDS: CARVEDILOL 12.5MG TABLET PO SCH ×2 (08:38→20:17)
[2018-09-25] MEDS: ISOSORBIDE DINITRATE 20MG TABLET PO SCH ×3 (08:38→18:40)
[2018-09-25] MEDS: ALBUMIN HUMAN 12.5GM/50ML (25%) IV SCH ×2 (10:00→16:50)
[2018-09-25] MEDS: INSULIN GLARGINE UD 100 UNITS/ML SYR SUBCUT SCH (10:03)
[2018-09-25 12:00] VITALS: BP 116/48
[2018-09-25] MEDS: INSULIN LISPRO 100 UNITS/ML SUBCUT SCH ×4 (13:10→20:18)
[2018-09-25 16:00] VITALS: BP 126/51
[2018-09-25] MEDS: CEFEPIME 2,000 MG in DEXT 5% WATER 100 ML IV SCH (18:22)
[2018-09-25] MEDS: DOCUSATE SODIUM 100MG CAPSULE PO SCH (18:41)
[2018-09-25 20:00] VITALS: BP 118/55
[2018-09-25 20:07] LABS: BASOPHILS % 0.9 % (0.0-2.0); EOSINOPHILS % 1.6 % (0.0-5.0); HEMATOCRIT. 26.4 % (36.0-48.0); HEMOGLOBIN. 8.8 g/dL (12.0-16.0); LYMPHOCYTES % 13.2 % (20.0-50.0); MEAN CORPUSCULAR VOLUME 89.5 fL (81.0-99.0); MEAN PLATELET VOLUME 9.9 fl (7.4-10.4); MONOCYTES % 10.1 % (2.0-8.0); NEUTROPHILS % 74.2 % (40.0-76.0); PLATELET 121 x1000/uL (130-400); RED BLOOD CELL COUNT 2.95 mill/uL (4.2-5.4); RED CELL DISTRIBUTION WIDTH 14.4 % (11.6-14.6)
[2018-09-25] MEDS: ATORVASTATIN CALCIUM 10MG TABLET PO SCH (20:16)
[2018-09-25 20:21] LABS: PHOSPHORUS 2.8 mg/dL (2.5-4.9)
[2018-09-26] VITALS: BP 128/57
[2018-09-26 04:00] VITALS: BP 139/62
[2018-09-26] MEDS: HYDRALAZINE HCL 50MG TABLET PO SCH ×3 (05:45→21:45)
[2018-09-26] MEDS: METRONIDAZOLE 250MG TABLET PO SCH ×3 (05:45→21:45)
[2018-09-26] MEDS: BLOOD SUGAR DIAGNOSTIC STRIP TEST SCH ×4 (07:40→20:32)
[2018-09-26] MEDS: INSULIN LISPRO 100 UNITS/ML SUBCUT SCH ×4 (07:40→20:31)
[2018-09-26 08:00] VITALS: BP 136/55
[2018-09-26] MEDS: ASPIRIN 81MG TABLET PO SCH (09:00)
[2018-09-26] MEDS: AMLODIPINE 10MG TABLET PO SCH (09:00)
[2018-09-26] MEDS: ISOSORBIDE DINITRATE 20MG TABLET PO SCH ×3 (09:00→17:00)
[2018-09-26] MEDS: CARVEDILOL 12.5MG TABLET PO SCH ×2 (09:00→20:32)
[2018-09-26] MEDS: ALBUMIN HUMAN 12.5GM/50ML (25%) IV SCH ×2 (09:17→17:00)
[2018-09-26] MEDS: INSULIN GLARGINE UD 100 UNITS/ML SYR SUBCUT SCH (11:02)
[2018-09-26 11:56] VITALS: BP 141/60
[2018-09-26 16:00] VITALS: BP 139/59
[2018-09-26] MEDS: CEFEPIME 2,000 MG in DEXT 5% WATER 100 ML IV SCH (19:13)
[2018-09-26] MEDS: DOCUSATE SODIUM 100MG CAPSULE PO SCH (19:16)
[2018-09-26 20:00] VITALS: BP 167/64
[2018-09-26] MEDS: ATORVASTATIN CALCIUM 10MG TABLET PO SCH (20:32)
[2018-09-26] MEDS: EPOETIN ALFA 4000UNITS/ML VIAL SUBCUT SCH (21:45)
[2018-09-27] VITALS (15 sets, daily range): BP systolic 129–174; BP diastolic 67–81
[2018-09-27] MEDS: METRONIDAZOLE 250MG TABLET PO SCH ×3 (06:00→22:50)
[2018-09-27] MEDS: HYDRALAZINE HCL 50MG TABLET PO SCH ×3 (06:00→22:32)
[2018-09-27] MEDS: BLOOD SUGAR DIAGNOSTIC STRIP TEST SCH ×4 (07:55→21:00)
[2018-09-27] MEDS ORDERED: SODIUM BICARBONATE 4% (2.4MEQ) 5ML VIAL IV ONE (07:55)
[2018-09-27] MEDS ORDERED: LIDOCAINE HCL 1% 20ML VIAL (Pyxis) INJ ONE (07:55)
[2018-09-27] MEDS ORDERED: FENTANYL CITRATE/PF 50MCG/ML 2ML VIAL ONE (08:06)
[2018-09-27] MEDS: INSULIN LISPRO 100 UNITS/ML SUBCUT SCH ×4 (08:10→22:46)
[2018-09-27] MEDS ORDERED: FENTANYL CITRATE/PF 50MCG/ML 2ML VIAL IV ONE (08:30)
[2018-09-27] MEDS ORDERED: FENTANYL CITRATE/PF 50MCG/ML 2ML VIAL IV SCH (09:00)
[2018-09-27] MEDS: ASPIRIN 81MG TABLET PO SCH (09:29)
[2018-09-27] MEDS: INSULIN GLARGINE UD 100 UNITS/ML SYR SUBCUT SCH (09:29)
[2018-09-27] MEDS: ISOSORBIDE DINITRATE 20MG TABLET PO SCH ×3 (09:30→17:00)
[2018-09-27] MEDS: AMLODIPINE 10MG TABLET PO SCH (09:31)
[2018-09-27] MEDS: CARVEDILOL 12.5MG TABLET PO SCH ×2 (09:31→22:33)
[2018-09-27] MEDS: CEFEPIME 2,000 MG in DEXT 5% WATER 100 ML IV SCH (18:39)
[2018-09-27] MEDS: DOCUSATE SODIUM 100MG CAPSULE PO SCH (18:39)
[2018-09-27] MEDS: ATORVASTATIN CALCIUM 10MG TABLET PO SCH (22:32)
[2018-09-28] VITALS: BP 134/50
[2018-09-28 04:00] VITALS: BP 155/67
[2018-09-28] MEDS: METRONIDAZOLE 250MG TABLET PO SCH ×3 (05:49→21:30)
[2018-09-28] MEDS: HYDRALAZINE HCL 50MG TABLET PO SCH ×3 (05:49→21:29)
[2018-09-28 08:00] VITALS: BP 143/60
[2018-09-28] MEDS: INSULIN LISPRO 100 UNITS/ML SUBCUT SCH ×4 (08:10→21:00)
[2018-09-28] MEDS: BLOOD SUGAR DIAGNOSTIC STRIP TEST SCH ×4 (08:21→21:00)
[2018-09-28] MEDS: AMLODIPINE 10MG TABLET PO SCH (09:00)
[2018-09-28] MEDS: ISOSORBIDE DINITRATE 20MG TABLET PO SCH ×3 (09:05→17:00)
[2018-09-28] MEDS: ASPIRIN 81MG TABLET PO SCH (09:05)
[2018-09-28] MEDS: CARVEDILOL 12.5MG TABLET PO SCH ×2 (09:06→21:00)
[2018-09-28] MEDS: INSULIN GLARGINE UD 100 UNITS/ML SYR SUBCUT SCH (10:50)
[2018-09-28 12:00] VITALS: BP 127/59
[2018-09-28 16:00] VITALS: BP 145/66
[2018-09-28] MEDS: CEFEPIME 2,000 MG in DEXT 5% WATER 100 ML IV SCH (17:34)
[2018-09-28] MEDS: DOCUSATE SODIUM 100MG CAPSULE PO SCH (17:34)
[2018-09-28 19:55] VITALS: BP 163/67
[2018-09-28] MEDS: ATORVASTATIN CALCIUM 10MG TABLET PO SCH (21:00)
[2018-09-28] MEDS: EPOETIN ALFA 4000UNITS/ML VIAL SUBCUT SCH (21:00)
[2018-09-29 00:05] VITALS: BP 123/66
[2018-09-29 04:00] VITALS: BP 127/64
[2018-09-29] MEDS: METRONIDAZOLE 250MG TABLET PO SCH ×2 (05:49→14:00)
[2018-09-29] MEDS: HYDRALAZINE HCL 50MG TABLET PO SCH ×2 (05:49→14:00)
[2018-09-29] MEDS: BLOOD SUGAR DIAGNOSTIC STRIP TEST SCH ×2 (07:40→12:40)
[2018-09-29 08:00] VITALS: BP 161/64
[2018-09-29] MEDS: INSULIN LISPRO 100 UNITS/ML SUBCUT SCH ×2 (08:10→13:10)
[2018-09-29] MEDS: ISOSORBIDE DINITRATE 20MG TABLET PO SCH ×3 (09:00→16:43)
[2018-09-29] MEDS: CARVEDILOL 12.5MG TABLET PO SCH (09:00)
[2018-09-29] MEDS: AMLODIPINE 10MG TABLET PO SCH (09:00)
[2018-09-29] MEDS: ASPIRIN 81MG TABLET PO SCH (09:00)
[2018-09-29 11:42] VITALS: BP 161/64
[2018-09-29 12:00] VITALS: BP 167/73
[2018-09-29] MEDS: INSULIN GLARGINE UD 100 UNITS/ML SYR SUBCUT SCH (13:19)
[2018-09-29 16:00] VITALS: BP 183/79
== END 2018-09-29 18:02 | disposition home or self-care (01) | DRG 673 ==
LOC: ER 16:36 → ENRESERV 22:10 → 7WST 09-21 00:13
PROVIDERS: ADMIT Internal Medicine; ATTEND Internal Medicine
PROC: 30233N1 Transfusion of Nonautologous Red Blood Cells into Peripheral Vein, Percutaneous Approach (ICD-10-PCS; principal; 2018-09-21)
PROC: 02HV33Z Insertion of Infusion Device into Superior Vena Cava, Percutaneous Approach (ICD-10-PCS; 2018-09-21)
PROC: B5181ZA Fluoroscopy of Superior Vena Cava using Low Osmolar Contrast, Guidance (ICD-10-PCS; 2018-09-21)
PROC: B548ZZA Ultrasonography of Superior Vena Cava, Guidance (ICD-10-PCS; 2018-09-21)
PROC: 5A1D70Z Performance of Urinary Filtration, Intermittent, Less than 6 Hours Per Day (ICD-10-PCS; 2018-09-21)
PROC: 5A1D70Z Performance of Urinary Filtration, Intermittent, Less than 6 Hours Per Day (ICD-10-PCS; 2018-09-23)
PROC: 5A1D70Z Performance of Urinary Filtration, Intermittent, Less than 6 Hours Per Day (ICD-10-PCS; 2018-09-26)
PROC: 0JH63XZ Insertion of Tunneled Vascular Access Device into Chest Subcutaneous Tissue and Fascia, Percutaneous Approach (ICD-10-PCS; 2018-09-27)
PROC: 02HV33Z Insertion of Infusion Device into Superior Vena Cava, Percutaneous Approach (ICD-10-PCS; 2018-09-27)
PROC: B5181ZA Fluoroscopy of Superior Vena Cava using Low Osmolar Contrast, Guidance (ICD-10-PCS; 2018-09-27)
PROC: 5A1D70Z Performance of Urinary Filtration, Intermittent, Less than 6 Hours Per Day (ICD-10-PCS; 2018-09-27)
DX: I12.0 Hypertensive chronic kidney disease with stage 5 chronic kidney disease or end stage renal disease (principal); N18.6 End stage renal disease; E43 Unspecified severe protein-calorie malnutrition; N17.9 Acute kidney failure, unspecified; L02.612 Cutaneous abscess of left foot; M86.8X7 Other osteomyelitis, ankle and foot; E78.5 Hyperlipidemia, unspecified; E11.40 Type 2 diabetes mellitus with diabetic neuropathy, unspecified; E11.22 Type 2 diabetes mellitus with diabetic chronic kidney disease; D63.1 Anemia in chronic kidney disease; E11.319 Type 2 diabetes mellitus with unspecified diabetic retinopathy without macular edema; L97.529 Non-pressure chronic ulcer of other part of left foot with unspecified severity; F32.9 Major depressive disorder, single episode, unspecified; I83.029 Varicose veins of left lower extremity with ulcer of unspecified site; E11.42 Type 2 diabetes mellitus with diabetic polyneuropathy; E11.51 Type 2 diabetes mellitus with diabetic peripheral angiopathy without gangrene; E11.621 Type 2 diabetes mellitus with foot ulcer; E11.69 Type 2 diabetes mellitus with other specified complication; E78.00 Pure hypercholesterolemia, unspecified; Z89.511 Acquired absence of right leg below knee; Z91.19 Patient's noncompliance with other medical treatment and regimen; Z88.0 Allergy status to penicillin; E66.9 Obesity, unspecified; Z68.32 Body mass index [BMI] 32.0-32.9, adult
CPT/HCPCS: 36415; 36556; 36558; 36589; 71045; 77001; 80048; 80061; 80069; 80076; 82728; 82962; 83036; 83540; 83550; 83605; 83735; 83970; 84100; 84484; 85014; 85018; 85651; 86140; 86705; 86706; 86803; 86850; 86900; 86920; 87340; 93005; 93970; 96374; 99152; 99153; 99285; C1750; C1752; C1769; C1893; J0360; J0692; J0885; J1642; J1644; J1815; J2150; J3010; J3490; J7050; J7060; P9016; P9047; G0500

== ENCOUNTER 2019-01-02 09:23 | Day surgery (SDC) | payer MEDICARE, MEDICAID ==
[~2019-01-02] VITALS: Ht 160 cm; Wt 75.0 kg
[~2019-01-02 09:23] MED LIST changes: -ASPI-1159 PO; +ASPI-1393 PO; -CALC667C4 PO; -HYDR25TA PO; -LANTUSUD SUBCUT; +LEVVL SQ; -LISI-653 PO; +LISI40TA4 PO
[2019-01-02] MEDS ORDERED: PAPAVERINE HCL 30 MG/ML 2ML IV ONE (10:03)
[2019-01-02] MEDS ORDERED: THROMBIN (BOVINE) 5000 UNITS/VIAL TOP ONE (10:03)
[2019-01-02] MEDS ORDERED: LIDOCAINE HCL 1% 20ML VIAL (Pyxis) INJ ONE (10:03)
[2019-01-02] MEDS ORDERED: HEPARIN SODIUM 1,000 UNIT/1ML VIAL IV ONE (10:03)
[2019-01-02] MEDS ORDERED: BUPIVACAINE HCL/PF 0.5% (5MG/ML) 10ML ONE (10:03)
[2019-01-02] MEDS ORDERED: BACITRACIN 50,000 UNITS/VIAL ONE (10:04)
[2019-01-02 10:28] LABS: BASOPHILS % 0.9 % (0.0-2.0); EOSINOPHILS % 1.5 % (0.0-5.0); HEMOGLOBIN. 9.3 g/dL (12.0-16.0); LYMPHOCYTES % 16.8 % (20.0-50.0); MEAN CORPUSCULAR HEMOGLOBIN 29.7 pg (28.0-32.0); MEAN CORPUSCULAR VOLUME 92.1 fL (81.0-99.0); MEAN PLATELET VOLUME 9.5 fl (7.4-10.4); MONOCYTES % 9.1 % (2.0-8.0); NEUTROPHILS % 71.7 % (40.0-76.0); PLATELET 206 x1000/uL (130-400); RED BLOOD CELL COUNT 3.15 mill/uL (4.2-5.4); RED CELL DISTRIBUTION WIDTH 15.2 % (11.6-14.6)
[2019-01-02 10:45] LABS: INR 1.2; PARTIAL THROMBOPLASTIN TIME 27.3 sec (23.4-31.0)
[2019-01-02] MEDS ORDERED: CLINDAMYCIN 900 MG PREMIX 50 ML IV ONE (13:01)
[2019-01-02] MEDS ORDERED: CEFAZOLIN SODIUM 1000MG/VIAL ONE (13:18)
[2019-01-02] MEDS ORDERED: MIDAZOLAM HCL 2 MG/2 ML VIAL ONE (13:18)
[2019-01-02] MEDS ORDERED: FENTANYL CITRATE/PF 50MCG/ML 2ML VIAL ONE (13:18)
[2019-01-02] MEDS ORDERED: PROPOFOL 200MG/20ML VIAL IV ONE (13:18)
[2019-01-02] MEDS ORDERED: SODIUM CHLORIDE 0.9% 1,000 ML IV ONE (14:20)
[2019-01-02] MEDS ORDERED: MEPERIDINE HCL/PF 25MG/ML CPJ IV PRN (14:30)
[2019-01-02] MEDS ORDERED: MORPHINE SULFATE 2 MG/ML CPJ (NOT FOR IM USE) IV PRN (14:30)
[2019-01-02] MEDS ORDERED: HYDROMORPHONE HCL/PF 2MG/ML CPJ IV PRN (14:30)
[2019-01-02] MEDS ORDERED: ONDANSETRON HCL 4MG/2ML INJ IV PRN (14:30)
[2019-01-02] MEDS ORDERED: HYDROCODONE/ACETAMINOPHEN 5/325MG TABLET PO PRN ×2 (16:00)
[2019-01-02] MEDS ORDERED: HEPARIN SODIUM 1,000 UNIT/1ML VIAL IV NR (16:01)
== END 2019-01-02 17:50 | disposition home or self-care (01) ==
LOC: OR 09:23
PROVIDERS: ATTEND Surgery Vascular Surgery
DX: I12.0 Hypertensive chronic kidney disease with stage 5 chronic kidney disease or end stage renal disease (principal); E11.22 Type 2 diabetes mellitus with diabetic chronic kidney disease; N18.6 End stage renal disease; E11.51 Type 2 diabetes mellitus with diabetic peripheral angiopathy without gangrene; E78.00 Pure hypercholesterolemia, unspecified; D64.9 Anemia, unspecified; Z79.899 Other long term (current) drug therapy; Z98.890 Other specified postprocedural states; Z88.0 Allergy status to penicillin; Z79.82 Long term (current) use of aspirin; Z79.4 Long term (current) use of insulin; Z83.3 Family history of diabetes mellitus; Z82.49 Family history of ischemic heart disease and other diseases of the circulatory system
CPT/HCPCS: 36415; 36821; 80048; 82962; 85025; 85610; 85730; 93005; J0690; J1644; J2250; J2704; J3010; J3490; J7040; J2440

== ENCOUNTER 2019-02-26 10:02 | Day surgery (SDC) | payer MEDICARE, MEDICAID ==
[~2019-02-26] VITALS: Ht 160 cm; Wt 63.5 kg
[~2019-02-26 10:02] MED LIST changes: +amlodipine PO
[2019-02-26 11:09] LABS: HEMOGLOBIN. 10.2 g/dL (12.0-16.0); MEAN CORPUSCULAR HEMOGLOBIN 30.2 pg (28.0-32.0); MEAN CORPUSCULAR VOLUME 95.2 fL (81.0-99.0); MEAN PLATELET VOLUME 9.9 fl (7.4-10.4); PLATELET 137 x1000/uL (130-400); RED BLOOD CELL COUNT 3.36 mill/uL (4.2-5.4); RED CELL DISTRIBUTION WIDTH 17.4 % (11.6-14.6)
[2019-02-26 11:56] LABS: PLATELET ESTIMATE NORMAL
[2019-02-26] MEDS ORDERED: SODIUM CHLORIDE 0.9% 500 ML IV ONE (12:15)
[2019-02-26] MEDS ORDERED: LIDOCAINE HCL 1% 20ML VIAL (Pyxis) INJ ONE (12:40)
[2019-02-26] MEDS ORDERED: BUPIVACAINE HCL/PF 0.5% (5MG/ML) 10ML ONE ×3 (12:40→14:03)
[2019-02-26] MEDS ORDERED: THROMBIN (BOVINE) 5000 UNITS/VIAL TOP ONE ×2 (12:41→14:03)
[2019-02-26] MEDS ORDERED: HEPARIN SODIUM 1,000 UNIT/1ML VIAL IV ONE ×3 (12:41→14:10)
[2019-02-26] MEDS ORDERED: BACITRACIN 50,000 UNITS/VIAL ONE ×2 (12:42→14:04)
[2019-02-26] MEDS ORDERED: BACITRACIN 15GM TUBE TOP ONE (14:03)
[2019-02-26] MEDS ORDERED: LIDOCAINE HCL/PF 1% 10 MG/ML 5ML VIAL ONE (14:04)
[2019-02-26] MEDS ORDERED: NORMAL SALINE 0.9% 10 ML SYR ONE (14:04)
[2019-02-26] MEDS ORDERED: FENTANYL CITRATE/PF 50MCG/ML 2ML VIAL ONE (14:18)
[2019-02-26] MEDS ORDERED: PROPOFOL 200MG/20ML VIAL IV ONE (14:18)
[2019-02-26] MEDS ORDERED: MIDAZOLAM HCL 2 MG/2 ML VIAL ONE (14:18)
[2019-02-26] MEDS ORDERED: KETOROLAC 30MG/ML VIAL ONE (14:19)
[2019-02-26] MEDS ORDERED: ROCURONIUM BROMIDE 10MG/ML VIAL 5ML IV ONE (14:19)
[2019-02-26] MEDS ORDERED: EPHEDRINE SULFATE 50MG/ML VIAL ONE (14:52)
[2019-02-26] MEDS ORDERED: DEXAMETHASONE 4MG/ML 1ML VIAL ONE (14:55)
[2019-02-26] MEDS ORDERED: GLYCOPYRROLATE 0.2 MG/ML 2ML VIAL ONE ×2 (14:56→16:27)
[2019-02-26] MEDS ORDERED: ONDANSETRON HCL 4MG/2ML INJ ONE (15:02)
[2019-02-26] MEDS ORDERED: FLUMAZENIL 0.1 MG/ML 5ML VIAL IV ONE (16:45)
[2019-02-26] MEDS ORDERED: HYDROCODONE/ACETAMINOPHEN 5/325MG TABLET PO PRN ×2 (17:00)
[2019-02-26] MEDS ORDERED: ONDANSETRON HCL 4MG/2ML INJ IV PRN (17:00)
[2019-02-26] MEDS ORDERED: INSULIN REGULAR (HUMULIN R) 300UNITS/3ML SUBCUT NR (19:45)
== END 2019-02-26 20:05 | disposition home or self-care (01) ==
LOC: OR 10:02
PROVIDERS: ATTEND Surgery Vascular Surgery
DX: I12.0 Hypertensive chronic kidney disease with stage 5 chronic kidney disease or end stage renal disease (principal); E11.22 Type 2 diabetes mellitus with diabetic chronic kidney disease; N18.6 End stage renal disease; E78.00 Pure hypercholesterolemia, unspecified; E11.51 Type 2 diabetes mellitus with diabetic peripheral angiopathy without gangrene; D64.9 Anemia, unspecified; Z99.2 Dependence on renal dialysis; Z83.3 Family history of diabetes mellitus; Z82.49 Family history of ischemic heart disease and other diseases of the circulatory system; Z88.0 Allergy status to penicillin; Z79.899 Other long term (current) drug therapy; Z98.890 Other specified postprocedural states; Z79.82 Long term (current) use of aspirin; Z79.4 Long term (current) use of insulin
CPT/HCPCS: 36415; 36830; 80048; 82962; 85025; 93005; C1768; J1100; J1644; J1885; J2250; J2405; J2704; J3010; J3490; J7040

== ENCOUNTER 2019-04-13 10:11 | Inpatient (IN) | payer MEDICARE, MEDICAID ==
[~2019-04-13] VITALS: Ht 160 cm; Wt 68.5 kg
[~2019-04-13 10:11] MED LIST changes: -amlodipine PO
[2019-04-13 11:20] LABS: CHLORIDE 97 mEq/L (98-107)
[2019-04-13 11:25] LABS: EOSINOPHILS % 3.5 % (0.0-5.0); HEMATOCRIT. 34.3 % (36.0-48.0); HEMOGLOBIN. 10.9 g/dL (12.0-16.0); LYMPHOCYTES % 9.7 % (20.0-50.0); MEAN CORPUSCULAR HEMOGLOBIN 31.5 pg (28.0-32.0); MEAN CORPUSCULAR VOLUME 99.1 fL (81.0-99.0); MEAN PLATELET VOLUME 10.4 fl (7.4-10.4); NEUTROPHILS % 77.8 % (40.0-76.0); PLATELET 184 x1000/uL (130-400); RED BLOOD CELL COUNT 3.46 mill/uL (4.2-5.4); RED CELL DISTRIBUTION WIDTH 16.1 % (11.6-14.6)
[2019-04-13 11:28] LABS: INR 1.1; PROTHROMBIN TIME 11.4 sec (9.6-11.0)
[2019-04-13] MEDS ORDERED: FUROSEMIDE 40MG/4ML VIAL IVP ONE (13:15)
[2019-04-13] MEDS ORDERED: CALCIUM GLUCONATE 1,000 MG in DEXTROSE 5% WATER 50 ML IV ONE (13:15)
[2019-04-13] MEDS ORDERED: ALBUTEROL (0.083%) 2.5MG/3ML NEB HHN ONE (13:15)
[2019-04-13] MEDS ORDERED: DEXTROSE 50% WATER 50ML SYRINGE IV ONE (13:15)
[2019-04-13] MEDS ORDERED: INSULIN REGULAR (HUMULIN R) UD 100 UNITS/ML SYR IV ONE (13:15)
[2019-04-13] MEDS ORDERED: INSULIN REGULAR (HUMULIN R) 300UNITS/3ML IV NR (14:30)
[2019-04-13 17:00] VITALS: BP 130/57
[2019-04-13] MEDS ORDERED: IPRATROPIUM/ALBUTEROL 0.5-3(2.5)MG/3ML NEB NEB PRN (17:00)
[2019-04-13] MEDS ORDERED: DIPHENHYDRAMINE 50MG/ML VIAL IV PRN (17:00)
[2019-04-13] MEDS ORDERED: ACETAMINOPHEN 325MG TABLET PO PRN (17:00)
[2019-04-13] MEDS ORDERED: MAGNESIUM HYDROXIDE 400MG/5ML 30ML UDC PO PRN (17:00)
[2019-04-13] MEDS ORDERED: MAGNESIUM/ALUMINUM HYDROXIDE/SIMETHICONE 30ML UDC PO PRN (17:00)
[2019-04-13] MEDS ORDERED: CLONIDINE 0.1MG TABLET PO PRN (17:00)
[2019-04-13] MEDS ORDERED: ONDANSETRON HCL 4MG/2ML INJ IV PRN (17:00)
[2019-04-13] MEDS: DOCUSATE SODIUM 100MG CAPSULE PO SCH (17:00)
[2019-04-13] MEDS: INSULIN LISPRO 100 UNITS/ML SUBCUT SCH ×2 (17:28→21:35)
[2019-04-13] MEDS: BLOOD SUGAR DIAGNOSTIC STRIP TEST SCH ×2 (17:28→21:33)
[2019-04-13 17:59] VITALS: BP 130/57
[2019-04-13 20:00] VITALS: BP 144/51
[2019-04-13] MEDS ORDERED: TEMAZEPAM 15MG CAPSULE PO PRN (21:00)
[2019-04-13] MEDS: LISINOPRIL 5MG TABLET PO SCH (21:33)
[2019-04-13] MEDS ORDERED: INSULIN GLARGINE UD 100 UNITS/ML SYR SUBCUT SCH (22:00)
[2019-04-14] VITALS: BP 149/56
[2019-04-14 04:00] VITALS: BP 145/54
[2019-04-14] MEDS: SODIUM CHLORIDE 0.9% INJ 3ML FLUSH IVF SCH ×3 (04:37→14:00)
[2019-04-14] MEDS: BLOOD SUGAR DIAGNOSTIC STRIP TEST SCH ×4 (06:17→21:43)
[2019-04-14] MEDS: INSULIN LISPRO 100 UNITS/ML SUBCUT SCH ×4 (06:46→21:54)
[2019-04-14 06:57] LABS: BASOPHILS % 0.8 % (0.0-2.0); HEMATOCRIT. 29.7 % (36.0-48.0); HEMOGLOBIN. 9.4 g/dL (12.0-16.0); LYMPHOCYTES % 10.6 % (20.0-50.0); MEAN CORPUSCULAR HEMOGLOBIN 31.6 pg (28.0-32.0); MEAN CORPUSCULAR VOLUME 99.7 fL (81.0-99.0); MEAN PLATELET VOLUME 10.6 fl (7.4-10.4); MONOCYTES % 9.4 % (2.0-8.0); NEUTROPHILS % 76.2 % (40.0-76.0); PLATELET 161 x1000/uL (130-400); RED BLOOD CELL COUNT 2.98 mill/uL (4.2-5.4); RED CELL DISTRIBUTION WIDTH 16.1 % (11.6-14.6)
[2019-04-14 08:00] VITALS: BP 147/64
[2019-04-14] MEDS: DOCUSATE SODIUM 100MG CAPSULE PO SCH ×2 (08:39→16:58)
[2019-04-14] MEDS: LISINOPRIL 5MG TABLET PO SCH ×2 (08:39→21:43)
[2019-04-14 16:00] VITALS: BP 160/64
[2019-04-14 20:00] VITALS: BP 156/69
[2019-04-14] MEDS ORDERED: EPOETIN ALFA 10000UNITS/ML VIAL SUBCUT NR (22:00)
[2019-04-14] MEDS ORDERED: INSULIN GLARGINE UD 100 UNITS/ML SYR SUBCUT SCH (22:00)
[2019-04-15] VITALS: BP 147/72
[2019-04-15] MEDS: DEXTROSE 50% WATER 50ML SYRINGE IV PRN ×2 (03:06→06:09)
[2019-04-15 04:00] VITALS: BP 161/70
[2019-04-15] MEDS: BLOOD SUGAR DIAGNOSTIC STRIP TEST SCH ×4 (06:11→21:23)
[2019-04-15] MEDS: SODIUM CHLORIDE 0.9% INJ 3ML FLUSH IVF SCH ×2 (06:57→21:34)
[2019-04-15 07:13] LABS: HEMATOCRIT 30.9 % (36.0-48.0); HEMOGLOBIN 9.8 g/dL (12.0-16.0); MEAN CORPUSCULAR HEMOGLOBIN 31.7 pg (28.0-32.0); MEAN CORPUSCULAR VOLUME 99.6 fL (81.0-99.0); PLATELET 167 x1000/uL (130-400); RED CELL DISTRIBUTION WIDTH 16.3 % (11.6-14.6)
[2019-04-15] MEDS: INSULIN LISPRO 100 UNITS/ML SUBCUT SCH ×4 (07:40→21:36)
[2019-04-15 08:36] LABS: CLARITY URINE CLOUDY (CLEAR); COLOR URINE YELLOW (YELLOW); KETONES URINE NEGATIVE (NEGATIVE); LEUKOCYTE ESTERASE URINE 1+ (NEGATIVE); NITRITE URINE NEGATIVE (NEGATIVE); OCCULT BLOOD URINE 3+ (NEGATIVE); PH URINE 6.5 (4.5-8.0); PROTEIN URINE 2+ (NEGATIVE); SPECIFIC GRAVITY URINE 1.002 (1.005-1.030); UROBILINOGEN URINE 0.2 E.U./dL (0.2-1.0)
[2019-04-15] MEDS: DOCUSATE SODIUM 100MG CAPSULE PO SCH ×2 (08:59→17:00)
[2019-04-15] MEDS: LISINOPRIL 5MG TABLET PO SCH ×2 (08:59→21:28)
[2019-04-15 12:00] VITALS: BP 167/72
[2019-04-15 16:00] VITALS: BP 204/86
[2019-04-15] MEDS: HYDRALAZINE 20MG/ML VIAL IV PRN (16:50)
[2019-04-15 20:00] VITALS: BP 176/79
[2019-04-15] MEDS: INSULIN GLARGINE UD 100 UNITS/ML SYR SUBCUT SCH (21:42)
[2019-04-16] VITALS: BP 154/55
[2019-04-16 04:00] VITALS: BP 157/98
[2019-04-16] MEDS: BLOOD SUGAR DIAGNOSTIC STRIP TEST SCH ×4 (06:14→21:00)
[2019-04-16] MEDS: SODIUM CHLORIDE 0.9% INJ 3ML FLUSH IVF SCH ×3 (06:24→22:08)
[2019-04-16] MEDS: INSULIN LISPRO 100 UNITS/ML SUBCUT SCH ×4 (06:26→22:14)
[2019-04-16 08:00] VITALS: BP 155/47
[2019-04-16] MEDS: LISINOPRIL 5MG TABLET PO SCH ×2 (09:00→22:07)
[2019-04-16] MEDS: DOCUSATE SODIUM 100MG CAPSULE PO SCH ×2 (10:53→16:29)
[2019-04-16 12:00] VITALS: BP 160/60
[2019-04-16 16:00] VITALS: BP 167/83
[2019-04-16] MEDS: HYDRALAZINE 20MG/ML VIAL IV PRN (16:53)
[2019-04-16 20:00] VITALS: BP 119/84
[2019-04-16] MEDS ORDERED: EPOETIN ALFA 10000UNITS/ML VIAL SUBCUT SCH (21:00)
[2019-04-16] MEDS: INSULIN GLARGINE UD 100 UNITS/ML SYR SUBCUT SCH (22:15)
[2019-04-17] VITALS: BP 137/56
[2019-04-17 04:00] VITALS: BP 155/65
[2019-04-17] MEDS: SODIUM CHLORIDE 0.9% INJ 3ML FLUSH IVF SCH (06:14)
[2019-04-17] MEDS: BLOOD SUGAR DIAGNOSTIC STRIP TEST SCH (06:14)
[2019-04-17] MEDS: INSULIN LISPRO 100 UNITS/ML SUBCUT SCH (07:40)
[2019-04-17 08:00] VITALS: BP 169/67
== END 2019-04-17 09:15 | disposition left against medical advice (07) | DRG 291 ==
LOC: ER 10:29 → 8WST 14:08 → ENRESERV 15:43
PROVIDERS: ADMIT Internal Medicine; ATTEND Internal Medicine
PROC: 5A1D70Z Performance of Urinary Filtration, Intermittent, Less than 6 Hours Per Day (ICD-10-PCS; 2019-04-13)
PROC: 5A1D70Z Performance of Urinary Filtration, Intermittent, Less than 6 Hours Per Day (ICD-10-PCS; 2019-04-15)
PROC: 5A1D70Z Performance of Urinary Filtration, Intermittent, Less than 6 Hours Per Day (ICD-10-PCS; principal; 2019-04-16)
DX: I13.2 Hypertensive heart and chronic kidney disease with heart failure and with stage 5 chronic kidney disease, or end stage renal disease (principal); N18.6 End stage renal disease; I50.33 Acute on chronic diastolic (congestive) heart failure; N25.81 Secondary hyperparathyroidism of renal origin; E46 Unspecified protein-calorie malnutrition; E87.5 Hyperkalemia; D63.8 Anemia in other chronic diseases classified elsewhere; E11.22 Type 2 diabetes mellitus with diabetic chronic kidney disease; E11.319 Type 2 diabetes mellitus with unspecified diabetic retinopathy without macular edema; E11.40 Type 2 diabetes mellitus with diabetic neuropathy, unspecified; E11.621 Type 2 diabetes mellitus with foot ulcer; L97.529 Non-pressure chronic ulcer of other part of left foot with unspecified severity; E11.51 Type 2 diabetes mellitus with diabetic peripheral angiopathy without gangrene; E78.5 Hyperlipidemia, unspecified; E11.649 Type 2 diabetes mellitus with hypoglycemia without coma; E78.00 Pure hypercholesterolemia, unspecified; H54.8 Legal blindness, as defined in USA; Z82.49 Family history of ischemic heart disease and other diseases of the circulatory system; Z83.3 Family history of diabetes mellitus; Z89.511 Acquired absence of right leg below knee; Z88.0 Allergy status to penicillin; Z99.2 Dependence on renal dialysis; Z89.611 Acquired absence of right leg above knee; Z79.82 Long term (current) use of aspirin; Z79.4 Long term (current) use of insulin; Z79.899 Other long term (current) drug therapy; Z89.432 Acquired absence of left foot
CPT/HCPCS: 36415; 71045; 80048; 81003; 82962; 83880; 84134; 84484; 85027; 86850; 86900; 93005; 94640; 99285; A6261; J0360; J0610; J0885; J1200; J1815; J1940; J7060; J7611